=== PATIENT | male | born 1990 | race Caucasian/White ===

== ENCOUNTER 2017-03-15 09:43 | Inpatient (IN) | payer OTHER ==
[2017-03-15 10:08] VITALS: BMI 36.1
--- NOTE | 2017-03-15 11:30 | HP ---
COWS - Scale Resting Pulse: 0= [place] 80 or Below Sweatin= Chills/Flushing Restless Observation: 1= Difficult to Sit Still Pupil Size: 0= Normal to Room Light Bone or Joint Aches: 2= Severe Diffuse Aches Runny Nose/ Eye Tearin= Runny Nose/Eyes GI Upset > 30mins: 2= Nausea/Diarrhea Tremor Observation: 1= Tremor [place], Not Seen Yawning Observation: 1= 1-2x During Session Anxiety or Irritability: 1=Feels Anxious/Irritable Goose Flesh Skin: 0=Smooth Skin COWS Score: 11 CIWA Score - CIWA Score Nausea/Vomitin-Mild Nausea/No Vomiting Muscle Tremors: 3 Anxiety: 4-Mod. Anxious/Guarded Agitation: 1-Slight > Activity Paroxysmal Sweats: 1-Minimal Palms Moist Orientation: 1-Uncertain about Date Tacttile Disturbances: 1-Very Mild Itch/Numbness Auditory Disturbances: 1-Very Mild Visual Disturbances: 1-Very Mild Sensitivity Headache: 2-Mild CIWA-Ar Total Score: 16 Admission ROS BHS - HPI Chief Complaint: I want to get better, get off drugs Allergies/Adverse Reactions: Allergies Allergy/AdvReac Type Severity Reaction Status Date / Time fish derived Allergy Severe Hives Verified 03/15/17 11:48 No Known Drug Allergies Allergy Verified 03/15/17 11:28 fish Allergy Severe Hives Uncoded 03/15/17 10:59 History of Present Illness: 26yo gentleman here for detox from alprazolam, opiates, using some alcohol as well - history of black outs and seizure two years ago. Previously in detox and rehab at [facility] 2014 - then in detox again last year in [place]. Exam Limitations: Clinical Condition - Ebola screening Have you traveled outside of the country in the last 21 days: No Have you had contact with anyone from an Ebola affected area: No Have you been sick,other than usual withdrawal symptoms: No Do you have a fever: No - Review of Systems Constitutional: Loss of Appetite, Malaise, Changes in sleep EENT: reports: Blurred Vision, Nose Congestion Respiratory: reports: No Symptoms reported Cardiac: reports: No Symptoms Reported GI: reports: Nausea : reports: No Symptoms Reported Musculoskeletal: reports: Back Pain, Muscle Pain Integumentary: reports: No Symptoms Reported Neuro: reports: Headache Endocrine: reports: No Symptoms Reported Hematology: reports: No Symptoms Reported Psychiatric: reports: Judgement Intact, Mood/Affect Appropiate, Anxious Other Systems: Reviewed and Negative Patient History - Patient Medical History Hx Asthma: No Hx Chronic Obstructive Pulmonary Disease (COPD): No Hx Cardiac Disorders: No Hx Hypertension: No Hx Seizures: Yes (drug rel 2 yrs ago) Hx Diabetes: No Hx Gastrointestinal Disorders: No Hx Liver Disease: No Hx Genitourinary Disorders: No Hx Sexually Transmitted Disorders: No Hx Renal Disease (ESRD): No Hx Thyroid Disease: No Hx Human Immunodeficiency Virus (HIV): No Hx Hepatitis C: No Hx Depression: Yes (history of meds) Hx Suicide Attempt: No Hx Bipolar Disorder: No Hx Schizophrenia: Yes (hospitalized 2013 in [facility]) - Patient Surgical History Past Surgical History: No - PPD History Previous Implant?: Yes Documented Results: Negative w/o proof Implanted On Prior [facility] Admission?: Yes PPD to be Administered?: Yes - Reproductive History Patient is a Female of Child Bearing Age (11 -55 yrs old): No (male) - Smoking Cessation Smoking history: Current every day smoker Have you smoked in the past 12 months: Yes Aproximately how many cigarettes per day: 20 Hx Chewing Tobacco Use: No Initiated information on smoking cessation: Yes 'Breaking Loose' booklet given: 03/15/17 (give on floor) - Substance & Tx. History Hx Alcohol Use: Yes Hx Substance Use: Yes Substance Use Type: Alcohol, Cocaine, Heroin, Opiates, Tranquilizers Hx Substance Use Treatment: Yes (detox, rehab, methadone last year x 3 mo (100mg ),) - Substances Abused Heroin Route: Injection Frequency: Daily Amount used: 5 bags Age of first use: 25 Date of Last Use: 03/14/17 Alprazolam (Xanax) Route: Oral Frequency: 3-6 times per week Amount used: 4- 6mg daily Age of first use: 25 Date of Last Use: 03/13/17 Alcohol Route: Oral Frequency: 1-3 times last 30 days Amount used: vodka 2 pints Age of first use: 25 Date of Last Use: 03/12/17 Marijuana/Hashish Route: Smoking Frequency: 1-2 times per week Amount used: 1 joint Age of first use: 13 Date of Last Use: 03/14/17 Crack Route: Smoking Frequency: 1-2 times per week Amount used: $20 Age of first use: 24 Date of Last Use: 03/14/17 Family Disease History - Family Disease History Family Disease History: Other: Father (living, healthy), Mother (living, healthy ), Brother (one, healthy), Sister (one living, one MVA), Son (one age 3 , healthy) Admission Physical Exam [facility] - Vital Signs Vital Signs: Vital Signs - 24 hr 03/15/17 10:00 Temperature 98 F Pulse Rate 63 Respiratory 20 Rate Blood Pressure 122/69 - Physical General Appearance: Yes: Nourished, Appropriately Dressed, Moderate Distress, Tremorous, Anxious HEENTM: Yes: Hearing grossly Normal, Normocephalic, Normal Voice, Pharynx Normal Respiratory: Yes: Normal Breath Sounds, No Respiratory Distress Neck: Yes: No masses,lesions,Nodules, Supple Breast: Yes: Breast Exam Deferred Cardiology: Yes: Regular Rhythm, Regular Rate Abdominal: Yes: Soft Genitourinary: Yes: Frequency Back: Yes: Normal Inspection Musculoskeletal: Yes: full range of Motion, Gait Steady Extremities: Yes: Normal Inspection Neurological: Yes: Alert, Normal Mood/Affect, Normal Response Integumentary: Yes: Normal Color, Warm Lymphatic: Yes: Within Normal Limits - Diagnostic (1) Opioid dependence with withdrawal Current Visit: Yes Status: Chronic (2) Sedative, hypnotic or anxiolytic dependence with withdrawal, uncomplicated Current Visit: Yes Status: Chronic (3) ETOH abuse Current Visit: Yes Status: Chronic (4) Cocaine dependence Current Visit: Yes Status: Chronic Qualifiers: Substance use status: uncomplicated Qualified Code(s): F14.20 - Cocaine dependence, uncomplicated (5) History of seizure Current Visit: Yes Status: Chronic (6) Marijuana dependence Current Visit: Yes Status: Chronic (7) Nicotine dependence Current Visit: Yes Status: Chronic Qualifiers: Nicotine product type: cigarettes Substance use status: uncomplicated Qualified Code(s): F17.210 - Nicotine dependence, cigarettes, uncomplicated Cleared for Admission [facility] - Detox or Rehab [facility] Level of Care: Medically Managed Detox Regimen/Protocol: Methadone/Valium S Breath Alcohol Content Breath Alcohol Content: 0 Urine Drug Screen - Results Drug Screen Negative: No Urine Drug Screen Results: THC-Marijuana, PRAVEEN-Cocaine, OPI-Opiates
[2017-03-15] MEDS ORDERED: IBUPROFEN 400 MG TABLET (FP) PO PRN (11:41)
[2017-03-15] MEDS ORDERED: MAG HYDROX/AL HYDROX/SIMETH 30 ML UNIT-DOSE CUP PO PRN (11:41)
[2017-03-15] MEDS ORDERED: MENTHOL/PHENOL 1 EACH UD MM PRN (11:41)
[2017-03-15] MEDS ORDERED: P-EPHED 60MG/TRIPROLIDI 2.5MG TABLET PO PRN (11:41)
[2017-03-15] MEDS ORDERED: hydrOXYzine PAMOATE 50 MG CAPSULE (FP) PO PRN (11:41)
[2017-03-15] MEDS ORDERED: LOPERAMIDE HCL 2 MG CAPSULE PO PRN (11:41)
[2017-03-15] MEDS ORDERED: diphenhydrAMINE HCL 50 MG CAPSULE PO PRN (11:41)
[2017-03-15] MEDS ORDERED: MAGNESIUM CITRATE 300 ML BOTTLE PO PRN (11:41)
[2017-03-15] MEDS ORDERED: guaiFENesin/D-METHORPHAN HB 10 ML UNIT-DOSE CUPS PO PRN (11:41)
[2017-03-15] MEDS ORDERED: ACETAMINOPHEN 325 MG TABLET (FP) PO PRN (11:41)
[2017-03-15] MEDS ORDERED: MAGNESIUM HYDROX 2400MG/30ML ORAL SUSPENSION 30 ML CUP PO PRN (11:41)
[2017-03-15] MEDS ORDERED: diazePAM 5 MG TABLET PO ONE (12:15)
[2017-03-15] MEDS ORDERED: METHADONE HCL 10 MG TABLET (FOR DETOX USE ONLY) PO ONE ×2 (12:15→23:00)
[2017-03-15] MEDS: NICOTINE 21 MG/24 HOURS TOPICAL PATCH TD SCH (12:30)
[2017-03-15 13:03] LABS: URINE APPEARANCE CLEAR; URINE BILIRUBIN NEGATIVE (NEGATIVE); URINE BLOOD NEGATIVE (NEGATIVE); URINE COLOR YELLOW; URINE GLUCOSE (UA) NEGATIVE (NEGATIVE); URINE KETONE NEGATIVE (NEGATIVE); URINE LEUK ESTERASE NEGATIVE (NEGATIVE); URINE NITRITE NEGATIVE (NEGATIVE); URINE PROTEIN NEGATIVE (NEGATIVE)
--- NOTE | 2017-03-15 13:44 | CONSULT ---
[facility] Psychiatric Consult - Data Date of interview: 03/15/17 Admission source: [facility] Identifying data: First admission to [facility] for this 26 y/o [place] male seeking detox treatment on for heroin,cocaine,xanax, alcohol and marijuana dependence.Patient is single,a father of one (has a 3 year -old son),homeless,unemployed and supported on food stamps. Substance Abuse History: Fully discussed with the patient in this interview.Mr Mahan affirms that this report is an accurate description of his habits. Smoking Cessation. Smoking history: Current every day smoker. Have you smoked in the past 12 months: Yes. Aproximately how many cigarettes per day: 20. Hx Chewing Tobacco Use: No. Initiated information on smoking cessation: Yes. ' Breaking Loose' booklet given: 03/15/17 (give on floor). - Substance & Tx. History. Hx Alcohol Use: Yes. Hx Substance Use: Yes. Substance Use Type: Alcohol, Cocaine, Heroin, Opiates, Tranquilizers. Hx Substance Use Treatment: Yes (detox, rehab, methadone last year x 3 mo (100mg),). - Substances Abused. Heroin. Route: Injection. Frequency: Daily. Amount used: 5 bags. Age of first use: 25. Date of Last Use: 03/14/17. Alprazolam (Xanax). Route: Oral. Frequency: 3-6 times per week. Amount used: 4- 6mg daily. Age of first use: 25. Date of Last Use: 03/13/17. Alcohol. Route: Oral. Frequency: 1- 3 times last 30 days. Amount used: vodka 2 pints. Age of first use: 25. Date of Last Use: 03/12/17. Marijuana/Hashish. Route: Smoking. Frequency: 1-2 times per week. Amount used: 1 joint. Age of first use: 13. Date of Last Use : 03/14/17. Crack. Route: Smoking. Frequency: 1-2 times per week. Amount used: $20. Age of first use: 24. Date of Last Use: 03/14/17 Medical History: Noted history of withdrawal-related seizures. Psychiatric History: Patient is an articulate historian.He endorses a history of two psychiatric hospitalizations ([facility] during adolescence + [facility] in 2013).No report of regular psychiatric OPD care.Mr Negrito indicates that he was diagnosed with ADHD,PTSD and Schizophrenia.It appears that the diagnosis of schizophrenia is quite recent (established by a psychiatrist at [facility] a few months ago).Strattera has been proposed to the patient at another rehabilitation facility (not started for unclear reasons).Patient reports episodes of anhedonia,dysphoric/depressed mood, feelings of inadequacy and low self-esteem,brief/chronic auditory hallucinations (different voices of past victims injured in accidents witnessed by him during employment at the [employer]).Patient denies history of suicide attempts. Physical/Sexual Abuse/Trauma History: No reported history of sexual abuse.Stressors : estrangement from his parents/relatives,unemployment, homelessness,strained financial situation,lack of vocational skills,ambiguous relations with child's mother and recent of one sister in a motor vehicle accident.Patient admits to flasbacks and hyperarousal.No nightmares reported. Additional Comment: Urine Drug Screen Results: THC-Marijuana, PRAVEEN-Cocaine, OPI- Opiates.Noted. Mental Status Exam - Mental Status Exam Alert and Oriented to: Time, Place, Person Cognitive Function: Good Patient Appearance: Well Groomed (obese) Mood: Withdrawn, Anxious Affect: Mood Congruent, Constricted Patient Behavior: Fatigued, Talkative, Cooperative Speech Pattern: Clear, Appropriate Voice Loudness: Normal Thought Process: Goal Oriented Thought Disorder: Bizarre Hallucinations: Denies (during this interview;however voices are reported to be heard as a chronic occurrence.Not threatening or commandind and usually friendly according to patient) Suicidal Ideation: Denies Homicidal Ideation: Denies Insight/Judgement: Poor Sleep: Poorly, Difficulty falling asleep Appetite: Good Muscle strength/Tone: Normal Gait/Station: Normal Psychiatric Findings - Problem List ([place] 1, 2,3) (1) Opioid dependence with withdrawal Current Visit: Yes Status: Acute (2) Sedative, hypnotic or anxiolytic dependence with withdrawal, uncomplicated Current Visit: Yes Status: Acute (3) Marijuana dependence Current Visit: Yes Status: Acute (4) Cocaine dependence Current Visit: Yes Status: Acute Qualifiers: Substance use status: uncomplicated Qualified Code(s): F14.20 - Cocaine dependence, uncomplicated (5) Nicotine dependence Current Visit: Yes Status: Chronic Qualifiers: Nicotine product type: cigarettes Substance use status: uncomplicated Qualified Code(s): F17.210 - Nicotine dependence, cigarettes, uncomplicated (6) ETOH abuse Current Visit: Yes Status: Acute (7) Substance induced mood disorder Current Visit: Yes Status: Acute (8) Post traumatic stress disorder (PTSD) Current Visit: Yes Status: Suspected (9) Schizoaffective disorder Current Visit: Yes Status: Chronic (10) History of seizure Current Visit: Yes Status: Chronic (11) Insomnia Current Visit: Yes Status: Acute - Initial Treatment Plan Initial Treatment Plan: Psychoeducation.Detoxification.Patient agrees to be started on seroquel 50 mg po daily + 100 mg po hs with plan to titrate up to optimal dose (400-600 mg/day).To be augmented with an antidepressant + a mood stabilizer during treatment on the rehab unit (patient is interested in inpatient rehabilitation care).Ambien 10 mg po hs prn is ordered to address insomnia.Side effects/benefits of these drugs are discussed with the patient.Mr Mahan agrees to follow this careplan.Observation.
[2017-03-15] MEDS: diazePAM 5 MG TABLET PO SCH ×2 (14:29→22:17)
[2017-03-15] MEDS: diazePAM 5 MG TABLET PO PRN (17:45)
[2017-03-15] MEDS: ZOLPIDEM TARTRATE 5 MG TABLET PO PRN (22:17)
[2017-03-15] MEDS: QUEtiapine FUMARATE 100 MG TABLET (FP) PO SCH (22:17)
[2017-03-15] MEDS: THIAMINE HCL 100 MG TABLET (FP) PO SCH (22:18)
[2017-03-16] MEDS: diazePAM 5 MG TABLET PO SCH ×3 (05:41→22:17)
--- NOTE | 2017-03-16 09:51 | PN ---
[facility] CIWA - CIWA Score Nausea/Vomitin-Mild Nausea/No Vomiting Muscle Tremors: 3 Anxiety: 4-Mod. Anxious/Guarded Agitation: 3 Paroxysmal Sweats: 3 Orientation: 0-Oriented Tacttile Disturbances: 0-None Auditory Disturbances: 0-None Visual Disturbances: 0-None Headache: 0-None Present CIWA-Ar Total Score: 14 BHS COWS - Scale Resting Pulse: 0= [place] 80 or Below Sweatin=Flushed/Facial Moisture Restless Observation: 1= Difficult to Sit Still Pupil Size: 0= Normal to Room Light Bone or Joint Aches: 1= Mild Discomfort Runny Nose/ Eye Tearin= Nasal Congestion GI Upset > 30mins: 2= Nausea/Diarrhea Tremor Observation of Outstretched Hands: 2= Slight Tremor Visible Yawning Observation: 1= 1-2x During Session Anxiety or Irritability: 2=Irritable/Anxious Goose Flesh Skin: 0=Smooth Skin COWS Score: 12 S Progress Note (SOAP) Subjective: Anxiety,tremors,sweating,interrupted sleep,muscle aches,nausea. Objective: 03/16/17 09:50 Vital Signs - 8 hr 03/16/17 03/16/17 03:30 06:00 Temperature 97.3 F L Pulse Rate 55 L Respiratory 16 20 Rate Blood Pressure 102/66 Laboratory Last Values Urine Color Yellow 03/15/17 11:45 Urine Appearance Clear 03/15/17 11:45 Urine pH 7.0 (5.0-8.0) 03/15/17 11:45 Ur Specific [place] 1.020 (1.005-1.025) 03/15/17 11:45 Urine Protein Negative (NEGATIVE) 03/15/17 11:45 Urine Glucose (UA) Negative (NEGATIVE) 03/15/17 11:45 Urine Ketones Negative (NEGATIVE) 03/15/17 11:45 Urine Blood Negative (NEGATIVE) 03/15/17 11:45 Urine Nitrite Negative (NEGATIVE) 03/15/17 11:45 Urine Bilirubin Negative (NEGATIVE) 03/15/17 11:45 Urine Urobilinogen 2.0 mg/dL (0.2-1.0) 03/15/17 11:45 Ur Leukocyte Esterase Negative (NEGATIVE) 03/15/17 11:45 Assessment: 03/16/17 09:50 Withdrawal sx. Plan: Continue detox
[2017-03-16] MEDS ORDERED: METHADONE HCL 10 MG TABLET (FOR DETOX USE ONLY) PO SCH (10:00)
[2017-03-16] MEDS: PRENATAL VITAMINS W/ FOLIC ACID TABLET (FP) PO SCH (10:26)
[2017-03-16] MEDS: QUEtiapine FUMARATE 50 MG TABLET PO SCH (10:26)
[2017-03-16] MEDS: NICOTINE 21 MG/24 HOURS TOPICAL PATCH TD SCH (10:27)
[2017-03-16] MEDS: diazePAM 5 MG TABLET PO PRN ×2 (10:30→17:26)
[2017-03-16 10:31] LABS: ALBUMIN 3.5 g/dl (3.4-5.0); CALCIUM 8.6 mg/dL (8.5-10.1); GLUCOSE,RANDOM 95 mg/dL (74-106)
[2017-03-16 10:37] LABS: ALK PHOS 69 U/L (45-117); ANION GAP 7 (8-16); BILIRUBIN,TOTAL 0.4 mg/dL (0.2-1.0); CO2 26 mmol/L (21-32); CREATININE 0.9 mg/dL (0.7-1.3); SGOT/AST 9 U/L (15-37); SGPT/ALT 21 U/L (12-78); TOT PROT 6.5 g/dl (6.4-8.2)
[2017-03-16 10:58] LABS: MCH 28.2 pg (25.7-33.7); MCHC 33.5 g/dl (32.0-35.9); MEAN CELL VOLUME 84.3 fl (80-96); PLATELET COUNT 243 K/MM3 (134-434); RDW 13.5 % (11.9-15.9); WHITE BLOOD COUNT 6.4 K/mm3 (4.0-10.0)
--- NOTE | 2017-03-16 13:57 | EKG ---
Test Reason : Blood Pressure : / mmHG Vent. Rate : 062 BPM Atrial Rate : 062 BPM P-R Int : 138 ms QRS Dur : 094 ms QT Int : 394 ms P-R-T Axes : 042 068 043 degrees QTc Int : 399 ms NORMAL SINUS RHYTHM NORMAL ECG NO PREVIOUS ECGS AVAILABLE Confirmed by RADHA SILVA, ZOË ([id number]) on 03/16/2017 1:56:44 PM Referred By: Confirmed By:ZOË GARCIA MD
[2017-03-16] MEDS: ZOLPIDEM TARTRATE 5 MG TABLET PO PRN (22:17)
[2017-03-16] MEDS: QUEtiapine FUMARATE 100 MG TABLET (FP) PO SCH (22:17)
[2017-03-16] MEDS: THIAMINE HCL 100 MG TABLET (FP) PO SCH (22:17)
[2017-03-17] MEDS: diazePAM 5 MG TABLET PO PRN ×3 (05:52→18:06)
[2017-03-17] MEDS: PRENATAL VITAMINS W/ FOLIC ACID TABLET (FP) PO SCH (10:16)
[2017-03-17] MEDS: QUEtiapine FUMARATE 50 MG TABLET PO SCH (10:16)
[2017-03-17] MEDS: METHADONE HCL 5 MG TABLET (FOR DETOX USE ONLY) PO SCH (10:17)
[2017-03-17] MEDS: diazePAM 5 MG TABLET PO SCH ×2 (10:17→22:13)
[2017-03-17] MEDS: NICOTINE 21 MG/24 HOURS TOPICAL PATCH TD SCH (10:17)
--- NOTE | 2017-03-17 12:13 | PN ---
S CIWA - CIWA Score Nausea/Vomitin Muscle Tremors: 3 Anxiety: 3 Agitation: 3 Paroxysmal Sweats: 1-Minimal Palms Moist Orientation: 0-Oriented Tacttile Disturbances: 1-Very Mild Itch/Numbness Auditory Disturbances: 1-Very Mild Visual Disturbances: 1-Very Mild Sensitivity Headache: 2-Mild CIWA-Ar Total Score: 18 BHS COWS - Scale Resting Pulse: 0= MD 80 or Below Sweatin= Chills/Flushing Restless Observation: 3= Extraneous Movement Pupil Size: 1= Pupils >than Normal Bone or Joint Aches: 2= Severe Diffuse Aches Runny Nose/ Eye Tearin= Runny Nose/Eyes GI Upset > 30mins: 2= Nausea/Diarrhea Tremor Observation of Outstretched Hands: 2= Slight Tremor Visible Yawning Observation: 1= 1-2x During Session Anxiety or Irritability: 2=Irritable/Anxious Goose Flesh Skin: 0=Smooth Skin COWS Score: 16 S Progress Note (SOAP) Subjective: ALERT,IRRITABLE,ANXIOUS,INTERRUPTED SLEEP,TREMOR,PAIN IN THE BODY AND BACK Objective: 03/17/17 12:12 Vital Signs Temperature 97.7 F 03/17/17 10:06 Pulse Rate 68 03/17/17 10:06 Respiratory Rate 16 03/17/17 10:06 Blood Pressure 122/69 03/17/17 10:06 O2 Sat by Pulse Oximetry (%) Laboratory Last Values WBC 6.4 K/mm3 (4.0-10.0) 03/16/17 08:00 RBC 5.06 M/mm3 (4.00-5.60) 03/16/17 08:00 Hgb 14.3 GM/dL (11.7-16.9) 03/16/17 08:00 Hct 42.6 % (35.4-49) 03/16/17 08:00 MCV 84.3 fl (80-96) 03/16/17 08:00 MCH 28.2 pg (25.7-33.7) 03/16/17 08:00 MCHC 33.5 g/dl (32.0-35.9) 03/16/17 08:00 RDW 13.5 % (11.9-15.9) 03/16/17 08:00 Plt Count 243 K/MM3 (134-434) 03/16/17 08:00 MPV 8.0 fl (7.5-11.1) 03/16/17 08:00 Sodium 142 mmol/L (136-145) 03/16/17 08:00 Potassium 4.1 mmol/L (3.5-5.1) 03/16/17 08:00 Chloride 109 mmol/L (98-107) H 03/16/17 08:00 Carbon Dioxide 26 mmol/L (21-32) 03/16/17 08:00 Anion Gap 7 (8-16) L 03/16/17 08:00 BUN 11 mg/dL (7-18) 03/16/17 08:00 Creatinine 0.9 mg/dL (0.7-1.3) 03/16/17 08:00 Creat Clearance w eGFR > 60 (>60) 03/16/17 08:00 Random Glucose 95 mg/dL (74-106) 03/16/17 08:00 Calcium 8.6 mg/dL (8.5-10.1) 03/16/17 08:00 Total Bilirubin 0.4 mg/dL (0.2-1.0) 03/16/17 08:00 AST 9 U/L (15-37) L 03/16/17 08:00 ALT 21 U/L (12-78) 03/16/17 08:00 Alkaline Phosphatase 69 U/L (45-117) 03/16/17 08:00 Total Protein 6.5 g/dl (6.4-8.2) 03/16/17 08:00 Albumin 3.5 g/dl (3.4-5.0) 03/16/17 08:00 Urine Color Yellow 03/15/17 11:45 Urine Appearance Clear 03/15/17 11:45 Urine pH 7.0 (5.0-8.0) 03/15/17 11:45 Ur Specific [place] 1.020 (1.005-1.025) 03/15/17 11:45 Urine Protein Negative (NEGATIVE) 03/15/17 11:45 Urine Glucose (UA) Negative (NEGATIVE) 03/15/17 11:45 Urine Ketones Negative (NEGATIVE) 03/15/17 11:45 Urine Blood Negative (NEGATIVE) 03/15/17 11:45 Urine Nitrite Negative (NEGATIVE) 03/15/17 11:45 Urine Bilirubin Negative (NEGATIVE) 03/15/17 11:45 Urine Urobilinogen 2.0 mg/dL (0.2-1.0) 03/15/17 11:45 Ur Leukocyte Esterase Negative (NEGATIVE) 03/15/17 11:45 RPR Titer Nonreactive (NONREACTIVE) 03/16/17 08:00 Assessment: 03/17/17 12:12 WITHDRAWAL SYMPTOM Plan: CONTINUE DETOX,PSYCHIATRIC REEVALUATION ABOUT MEDICATIONS
[2017-03-17] MEDS: ZOLPIDEM TARTRATE 5 MG TABLET PO PRN (22:13)
[2017-03-17] MEDS: QUEtiapine FUMARATE 100 MG TABLET (FP) PO SCH (22:13)
[2017-03-17] MEDS: THIAMINE HCL 100 MG TABLET (FP) PO SCH (22:13)
--- NOTE | 2017-03-18 09:53 | PN ---
S Progress Note (SOAP) Subjective: ALERT,IRRITABLE,ANXIOUS,INTERRUPTED SLEEP,TREMOR,PAIN IN THE BODY AND BACK Objective: 03/18/17 09:51 Vital Signs Temperature 97.3 F L 03/18/17 06:20 Pulse Rate 69 03/18/17 06:20 Respiratory Rate 18 03/18/17 06:20 Blood Pressure 103/56 03/18/17 06:20 O2 Sat by Pulse Oximetry (%) Assessment: 03/18/17 09:52 WITHDRAWAL SYMPTOM Plan: CONTINUE DETOX,PSYCHIATRIC REEVALUATION
[2017-03-18] MEDS: PRENATAL VITAMINS W/ FOLIC ACID TABLET (FP) PO SCH (10:26)
[2017-03-18] MEDS: QUEtiapine FUMARATE 50 MG TABLET PO SCH (10:26)
[2017-03-18] MEDS: diazePAM 5 MG TABLET PO SCH ×2 (10:26→22:08)
[2017-03-18] MEDS: METHADONE HCL 5 MG TABLET (FOR DETOX USE ONLY) PO SCH (10:27)
[2017-03-18] MEDS: NICOTINE 21 MG/24 HOURS TOPICAL PATCH TD SCH (10:30)
[2017-03-18] MEDS: NICOTINE POLACRILEX 2 MG GUM BUC PRN ×2 (10:31→17:12)
--- NOTE | 2017-03-18 10:38 | PN ---
Psychiatric Progress Note Vital Signs: Vital Signs Period Temp Pulse Resp BP Sys/Gómez Pulse Ox Last 24 Hr 97.3 F-98.1 F 60-78 16-20 103-132/56-86 Date of Session: 03/18/17 Chief Complaint:: " I am feeling much better." HPI: Day 4 of detox treatment.Patient is re-evaluated for adjustment of medications. ROS: Patient is visible,alert / fully oriented,calm and sociable.Pleasant on approach.No somatic complaints offered.Comfortable. Current Medications: Active Medications Generic Name Dose Route Start Last Admin Trade Name Freq PRN Reason Stop Dose Admin Acetaminophen 650 mg 03/15/17 11:41 Tylenol - PO Q4H PRN FEVER OR PAIN Al Hydroxide/Mg Hydroxide 30 ml 03/15/17 11:41 Mylanta Oral Suspension - PO Q6H PRN DYSPEPSIA Diazepam 10 mg 03/15/17 11:41 03/17/17 18:06 Valium - PO 03/18/17 11:41 10 mg Q4H PRN Administration WITHDRAWAL(CONT SUBST) Diazepam 5 mg 03/17/17 10:00 03/17/17 22:13 Valium - PO 03/18/17 22:01 5 mg BID GREGG Administration Diazepam 5 mg 03/19/17 10:00 Valium - PO 03/19/17 10:01 DAILY GREGG Diphenhydramine HCl 50 mg 03/15/17 11:41 Benadryl - PO HSMR1 PRN INSOMNIA Eucalyptus/Menthol/Phenol/Sorbitol 1 each 03/15/17 11:41 Cepastat Lozenge - MM Q4H PRN SORE THROAT Guaifenesin 10 ml 03/15/17 11:41 Robitussin Dm - PO Q6H PRN COUGH Hydroxyzine Pamoate 50 mg 03/15/17 11:41 Vistaril - PO Q4H PRN AGITATION Ibuprofen 400 mg 03/15/17 11:41 Motrin - PO Q6H PRN SEVERE PAIN Loperamide HCl 4 mg 03/15/17 11:41 Imodium - PO Q6H PRN DIARRHEA Magnesium Citrate 300 ml 03/15/17 11:41 Citroma - PO Q48H PRN CONSTIPATION Magnesium Hydroxide 30 ml 03/15/17 11:41 Milk Of Magnesia - PO DAILY PRN CONSTIPATION Methadone HCl 10 mg 03/19/17 10:00 Dolophine - PO 03/19/17 10:01 DAILY GREGG Methadone HCl 5 mg 03/20/17 06:00 Dolophine - PO 03/20/17 06:01 DAILY@0600 GREGG Nicotine 21 mg 03/15/17 12:15 03/17/17 10:17 Nicoderm Patch - TD 21 mg DAILY GREGG Administration Nicotine Polacrilex 2 mg 03/18/17 09:03 Nicorette Gum - BUC Q2H PRN NICOTINE REPLACEMENT RX Multivit/Folic Acid/Iron 1 tab 03/16/17 10:00 03/17/17 10:16 Vitamins ([facility]) - PO 1 tab DAILY GREGG Administration Pseudoephedrine/Triprolidine 1 combo 03/15/17 11:41 Actifed - PO TID PRN NASAL CONGESTION Quetiapine Fumarate 100 mg 03/15/17 22:00 03/17/17 22:13 Seroquel - PO 100 mg HS GREGG Administration Quetiapine Fumarate 50 mg 03/16/17 10:00 03/17/17 10:16 Seroquel - PO 50 mg DAILY GREGG Administration Thiamine HCl 100 mg 03/15/17 22:00 03/17/17 22:13 Vitamin B1 - PO 100 mg HS GREGG Administration Zolpidem Tartrate 10 mg 03/15/17 17:19 03/17/17 22:13 Ambien - PO 10 mg HS PRN Administration INSOMNIA Medication(s) Change(s): Seroquel is raised to 200 mg po hs + 100 mg po daily.Patient is offered a choice among three mood stabilizers (depakote,lithium ,topamax).Mr Mahan declines.He appears more concerned about the discontinuation of diazepam." I cannot function without valium." Current Side Effect: No Lab tests ordered: No Lab tests reviewed: Yes Provider note:: Met with the patient at bedside.Mr Mahan reports feeling calmer,more controlled and energetic.He endorses remarkable improvement of sleep and appetite.No complaint of auditory hallucinations.No delusions elicited." This combination of seroquel and valium is working well.I sleep good and I no longer feel tense." Patient is already inquiring about the feasibility of having a script for valium at discharge (informed that no such script will be dispensed).Personal hygiene is adequate.Thought processes are relevant, logical and goal-directed.Patient insists on staying on seroquel (rejects proposal of augmentation with mood stabilizers).Psychostimulants are discussed in this session.Patient is made aware of the potential for occurrence of psychosis as an adverse effect and he advised to address ADHD (if diagnosed with certainty) in OPD care.Otherwise the patient is showing good progress.His inclination for benzodiazepines has become more evident throughout this hospital course.Patient is made aware of alternate medications for anxiety ( SSRI drugs discussed but patient expresses no interest).Mr Mahan is adherent to his regime of treatment.He is comfortabel with plan to transition to rehabiltation care at [facility] in [facility].MSE completed.Uneventful hospital course. Total face to face time:: 45 Mental Status Exam - Mental Status Exam Alert and Oriented to: Time, Place, Person Cognitive Function: Good Patient Appearance: Well Groomed Mood: Hopeful, Euthymic Affect: Appropriate, Normal Range Patient Behavior: Appropriate, Cooperative Speech Pattern: Clear Voice Loudness: Normal Thought Process: Intact, Goal Oriented Thought Disorder: Not Present Hallucinations: Denies Suicidal Ideation: Denies Homicidal Ideation: Denies Insight/Judgement: Fair Sleep: Well Appetite: Good Muscle strength/Tone: Normal Gait/Station: Normal Psychiatric Treatment Plan - Problem List (1) Opioid dependence with withdrawal Current Visit: Yes (2) Sedative, hypnotic or anxiolytic dependence with withdrawal, uncomplicated Current Visit: Yes (3) Marijuana dependence Current Visit: Yes (4) Cocaine dependence Current Visit: Yes Qualifiers: Substance use status: uncomplicated Qualified Code(s): F14.20 - Cocaine dependence, uncomplicated (5) Nicotine dependence Current Visit: Yes Qualifiers: Nicotine product type: cigarettes Substance use status: uncomplicated Qualified Code(s): F17.210 - Nicotine dependence, cigarettes, uncomplicated (6) ETOH abuse Current Visit: Yes (7) Substance induced mood disorder Current Visit: Yes (8) Post traumatic stress disorder (PTSD) Current Visit: Yes (9) Schizoaffective disorder Current Visit: Yes (10) History of seizure Current Visit: Yes (11) Insomnia Current Visit: Yes
[2017-03-18] MEDS: THIAMINE HCL 100 MG TABLET (FP) PO SCH (22:07)
[2017-03-18] MEDS: QUEtiapine FUMARATE 200 MG TABLET PO SCH (22:08)
[2017-03-18] MEDS: ZOLPIDEM TARTRATE 5 MG TABLET PO PRN (22:08)
--- NOTE | 2017-03-19 09:56 | PN ---
S Progress Note (SOAP) Subjective: ALERT,IRRITABLE,ANXIOUS,INTERRUPTED SLEEP Objective: 03/19/17 09:54 Vital Signs Temperature 97.4 F L 03/19/17 06:12 Pulse Rate 58 L 03/19/17 06:12 Respiratory Rate 16 03/19/17 06:12 Blood Pressure 97/50 03/19/17 06:12 O2 Sat by Pulse Oximetry (%) Assessment: 03/19/17 09:55 WITHDRAWAL SYMPTOM Plan: CONTINUE DETOX,DISCHARGE IN AM
[2017-03-19] MEDS ORDERED: METHADONE HCL 10 MG TABLET (FOR DETOX USE ONLY) PO SCH (10:00)
[2017-03-19] MEDS ORDERED: diazePAM 5 MG TABLET PO SCH (10:00)
[2017-03-19] MEDS: PRENATAL VITAMINS W/ FOLIC ACID TABLET (FP) PO SCH (10:23)
[2017-03-19] MEDS: NICOTINE 21 MG/24 HOURS TOPICAL PATCH TD SCH (10:23)
[2017-03-19] MEDS: QUEtiapine FUMARATE 100 MG TABLET (FP) PO SCH (10:23)
[2017-03-19] MEDS: ZOLPIDEM TARTRATE 5 MG TABLET PO PRN (22:26)
[2017-03-19] MEDS: THIAMINE HCL 100 MG TABLET (FP) PO SCH (22:26)
[2017-03-19] MEDS: QUEtiapine FUMARATE 200 MG TABLET PO SCH (22:27)
[2017-03-19] MEDS: NICOTINE POLACRILEX 2 MG GUM BUC PRN (22:28)
[2017-03-20] MEDS ORDERED: METHADONE HCL 5 MG TABLET (FOR DETOX USE ONLY) PO SCH (06:00)
--- NOTE | 2017-03-20 08:34 | DS ---
[facility] Detox Discharge Summary Admission Date: 03/15/17 Discharge Date: 03/20/17 - History Present History: Alcohol Dependence, Cannabis Dependence, Cocaine Dependence, Opioid Dependence, Sedative Dependence Additional Comments: FOLLOW UP WITH AFTER CARE PROGRAM ARRANGEMENT Pertinent Past History: NICOTINE DEPENDENCE SEIZURE HISTORY SCHIZOAFFECTIVE DISORDER PTSD - Physical Exam Results Vital Signs: Vital Signs Temperature 97.7 F 03/20/17 06:14 Pulse Rate 65 03/20/17 06:14 Respiratory Rate 16 03/20/17 06:14 Blood Pressure 101/53 03/20/17 06:14 O2 Sat by Pulse Oximetry (%) Pertinent Admission Physical Exam Findings: WITHDRAWAL FINDING - Treatment Hospital Course: Detox Protocol Followed, Detoxed Safely, Responded well, Discharged Condition Good, Rehab Referral Accepted Patient has Accepted a Rehab Referral to: [facility] - Medication Discharge Medications: Ambulatory Orders NK [No Known Home Medication] 03/15/17 - AMA Did Patient Leave Against Medical Advice: No
[2017-03-20 10:19] VITALS: BP 157/86; PULSE 104; TEMP 98.2
[2017-03-20] MEDS: PRENATAL VITAMINS W/ FOLIC ACID TABLET (FP) PO SCH (10:30)
[2017-03-20] MEDS: NICOTINE 21 MG/24 HOURS TOPICAL PATCH TD SCH (10:31)
[2017-03-20] MEDS: QUEtiapine FUMARATE 100 MG TABLET (FP) PO SCH (10:31)
== END 2017-03-20 11:04 | disposition home or self-care (01) | DRG 773 ==
LOC: YASAS 09:43 → UNDOADMIN 11:35 → Y6N 11:35 → UNDODISIN 03-20 11:04
PROVIDERS: ADMIT Internal Medicine; ATTEND Internal Medicine
PROC: HZ2ZZZZ Detoxification Services for Substance Abuse Treatment (ICD-10-PCS; principal; 2017-03-15)
DX: F11.23 Opioid dependence with withdrawal (principal); F13.230 Sedative, hypnotic or anxiolytic dependence with withdrawal, uncomplicated; F14.20 Cocaine dependence, uncomplicated; F12.20 Cannabis dependence, uncomplicated; F10.10 Alcohol abuse, uncomplicated; F17.210 Nicotine dependence, cigarettes, uncomplicated; F25.9 Schizoaffective disorder, unspecified; F43.10 Post-traumatic stress disorder, unspecified; F19.24 Other psychoactive substance dependence with psychoactive substance-induced mood disorder; G47.00 Insomnia, unspecified; Z86.69 Personal history of other diseases of the nervous system and sense organs; Z91.013 Allergy to seafood
CPT/HCPCS: 36415; 80053; 81003; 85027; 86593; 93005; 93010

== ENCOUNTER 2017-09-25 11:09 | Inpatient (IN) | payer OTHER ==
[2017-09-25 13:46] VITALS: BMI 33.0
--- NOTE | 2017-09-25 14:38 | HP ---
COWS - Scale Resting Pulse: 0= [place] 80 or Below Sweatin=Flushed/Facial Moisture Restless Observation: 1= Difficult to Sit Still Pupil Size: 0= Normal to Room Light Bone or Joint Aches: 2= Severe Diffuse Aches Runny Nose/ Eye Tearin= Runny Nose/Eyes GI Upset > 30mins: 0= None Tremor Observation: 2= Slight Tremor Visible Yawning Observation: 2= >3x During Session Anxiety or Irritability: 2=Irritable/Anxious Goose Flesh Skin: 3=Piloerection COWS Score: 16 Admission ROS S - HPI Chief Complaint: I am here to detox from the opioids and I no longer want to be on suboxone anymore. My last suboxone taken 3weeks ago. Allergies/Adverse Reactions: Allergies Allergy/AdvReac Type Severity Reaction Status Date / Time fish derived Allergy Severe Hives Verified 09/25/17 13:53 No Known Drug Allergies Allergy Verified 09/25/17 13:53 fish Allergy Severe Hives Uncoded 09/25/17 13:53 History of Present Illness: pt is a 27yr old male with a history of heroin dependence seeking detox for treatment. Exam Limitations: No Limitations - Ebola screening Have you traveled outside of the country in the last 21 days: No Have you had contact with anyone from an Ebola affected area: No Have you been sick,other than usual withdrawal symptoms: No Do you have a fever: No - Review of Systems Constitutional: Chills, Diaphoresis, Loss of Appetite, Night Sweats, Unintentional Wgt. Loss EENT: reports: Nose Congestion Respiratory: reports: No Symptoms reported Cardiac: reports: No Symptoms Reported GI: reports: Nausea, Poor Appetite, Poor Fluid Intake : reports: No Symptoms Reported Musculoskeletal: reports: No Symptoms Reported Integumentary: reports: Flushing, Sweating Neuro: reports: Seizure (last seizure 2 yrs related to benzo), Tingling, Tremors Endocrine: reports: Excessive Sweating, Flushing, Intolerance to Cold, Intolerance to Heat Hematology: reports: No Symptoms Reported Psychiatric: reports: Judgement Intact, Mood/Affect Appropiate, Orientated x3, Agitated, Anxious Other Systems: Reviewed and Negative Patient History - Patient Medical History Hx Anemia: No Hx Asthma: No Hx Chronic Obstructive Pulmonary Disease (COPD): No Hx Cancer: No Hx Cardiac Disorders: No Hx Congestive Heart Failure: No Hx Hypertension: No Hx Hypercholesterolemia: No Hx Pacemaker: No HX Cerebrovascular Accident: No Hx Seizures: Yes (drug related once in 2016) Hx Dementia: No Hx Diabetes: No Hx Gastrointestinal Disorders: No Hx Liver Disease: No Hx Genitourinary Disorders: No Hx Sexually Transmitted Disorders: No Hx Renal Disease (ESRD): No Hx Thyroid Disease: No Hx Human Immunodeficiency Virus (HIV): No (negative) Hx Hepatitis C: No (negative) Hx Depression: No Hx Suicide Attempt: No (denies) Hx Bipolar Disorder: No Hx Schizophrenia: No Other Medical History: ptsd, adhd, - Patient Surgical History Past Surgical History: No Hx Neurologic Surgery: No Hx Cataract Extraction: No Hx Cardiac Surgery: No Hx Lung Surgery: No Hx Breast Surgery: No Hx Breast Biopsy: No Hx Abdominal Surgery: No Hx Appendectomy: No Hx Cholecystectomy: No Hx Genitourinary Surgery: No Hx Section: No Hx Orthopedic Surgery: No Anesthesia Reaction: No - PPD History Previous Implant?: Yes Documented Results: Negative w/proof Implanted On Prior [facility] Admission?: Yes Date: 03/17/17 Results: 0 mm PPD to be Administered?: No - Reproductive History Patient is a Female of Child Bearing Age (11 -55 yrs old): No - Smoking Cessation Smoking history: Current every day smoker Have you smoked in the past 12 months: Yes Aproximately how many cigarettes per day: 20 Hx Chewing Tobacco Use: No Initiated information on smoking cessation: Yes 'Breaking Loose' booklet given: 09/25/17 - Substance & Tx. History Hx Alcohol Use: No Hx Substance Use: Yes Substance Use Type: Cocaine, Heroin, Marijuana, Tranquilizers Hx Substance Use Treatment: Yes (last detox 2017 [facility]) - Substances Abused Heroin Route: Injection Frequency: Daily Amount used: 10 bags Age of first use: 23 Date of Last Use: 09/25/17 Crack Route: Smoking Frequency: 1-2 times per week Amount used: $10 Age of first use: 26 Date of Last Use: 09/24/17 Xanax Route: Oral Frequency: 3-6 times per week Amount used: 2-4 mg. Age of first use: 26 Date of Last Use: 09/22/17 Marijuana Route: Smoking Frequency: 3-6 times per week Amount used: $5 Age of first use: 16 Date of Last Use: 09/25/17 Family Disease History - Family Disease History Family Disease History: Other: Father (living, healthy), Mother (living, healthy ), Brother (one, healthy), Sister (one living, one MVA), Son (one age 3 , healthy) Admission Physical Exam [facility] - Vital Signs Vital Signs: Vital Signs - 24 hr 09/25/17 13:42 Temperature 99.1 F Pulse Rate 70 Respiratory 20 Rate Blood Pressure 117/71 - Physical General Appearance: Yes: Appropriately Dressed, Moderate Distress, Tremorous, Irritable, Sweating, Anxious HEENTM: Yes: Hearing grossly Normal, Normal Voice, Nasal Congestion, Rhinorrhea Respiratory: Yes: Lungs Clear, Normal Breath Sounds, No Respiratory Distress Neck: Yes: No masses,lesions,Nodules Breast: Yes: Within Normal Limits, Breasts Symetrical, No Discharge Cardiology: Yes: Within Normal Limits, Regular Rhythm, Regular Rate Abdominal: Yes: Normal Bowel Sounds, Non Tender, Soft Genitourinary: Yes: Within Normal Limits Back: Yes: Normal Inspection Musculoskeletal: Yes: full range of Motion, Back pain Extremities: Yes: Normal Capillary Refill, Normal Inspection, Non-Tender, Tremors Neurological: Yes: Fully Oriented, Alert, Normal Response Integumentary: Yes: Normal Color, Diaphoresis, Track Chen Lymphatic: Yes: Within Normal Limits - Diagnostic (1) Cocaine dependence Current Visit: Yes Status: Acute Qualifiers: Substance use status: uncomplicated Qualified Code(s): F14.20 - Cocaine dependence, uncomplicated (2) Insomnia Current Visit: No Status: Acute (3) Marijuana dependence Current Visit: Yes Status: Chronic (4) Opioid dependence with withdrawal Current Visit: Yes Status: Chronic (5) Sedative, hypnotic or anxiolytic dependence with withdrawal, uncomplicated Current Visit: Yes Status: Chronic (6) Substance induced mood disorder Current Visit: No Status: Acute (7) History of seizure Current Visit: No Status: Suspected (8) Nicotine dependence Current Visit: Yes Status: Chronic Qualifiers: Nicotine product type: cigarettes Substance use status: uncomplicated Qualified Code(s): F17.210 - Nicotine dependence, cigarettes, uncomplicated (9) Schizoaffective disorder Current Visit: No Status: Chronic (10) Post traumatic stress disorder (PTSD) Current Visit: No Status: Suspected Cleared for Admission [facility] - Detox or Rehab [facility] Level of Care: Medically Managed Detox Regimen/Protocol: Methadone S Breath Alcohol Content Breath Alcohol Content: 0 Urine Drug Screen - Results Drug Screen Negative: No Urine Drug Screen Results: THC-Marijuana, PRAVEEN-Cocaine, OPI-Opiates, AMP- Amphetamines, OXY-Oxycodone
[2017-09-25] MEDS ORDERED: hydrOXYzine PAMOATE 50 MG CAPSULE (FP) PO PRN (14:44)
[2017-09-25] MEDS ORDERED: MENTHOL/PHENOL 1 EACH UD MM PRN (14:44)
[2017-09-25] MEDS ORDERED: ACETAMINOPHEN 325 MG TABLET (FP) PO PRN (14:44)
[2017-09-25] MEDS ORDERED: MAG HYDROX/AL HYDROX/SIMETH 30 ML UNIT-DOSE CUP PO PRN (14:44)
[2017-09-25] MEDS ORDERED: guaiFENesin/D-METHORPHAN HB 10 ML UNIT-DOSE CUPS PO PRN (14:44)
[2017-09-25] MEDS ORDERED: MAGNESIUM CITRATE 300 ML BOTTLE PO PRN (14:44)
[2017-09-25] MEDS ORDERED: MAGNESIUM HYDROX 2400MG/30ML ORAL SUSPENSION 30 ML CUP PO PRN (14:44)
[2017-09-25] MEDS ORDERED: P-EPHED 60MG/TRIPROLIDI 2.5MG TABLET PO PRN (14:44)
[2017-09-25] MEDS ORDERED: LOPERAMIDE HCL 2 MG CAPSULE PO PRN (14:44)
[2017-09-25] MEDS ORDERED: METHADONE HCL 10 MG TABLET (FOR DETOX USE ONLY) PO ONE ×2 (14:44→23:00)
[2017-09-25] MEDS ORDERED: IBUPROFEN 400 MG TABLET (FP) PO PRN (14:44)
[2017-09-25] MEDS: diazePAM 5 MG TABLET PO PRN ×2 (15:37→20:30)
[2017-09-25 18:10] LABS: URINE APPEARANCE CLEAR; URINE BILIRUBIN NEGATIVE (NEGATIVE); URINE BLOOD NEGATIVE (NEGATIVE); URINE COLOR DKYELLOW; URINE GLUCOSE (UA) NEGATIVE (NEGATIVE); URINE KETONE NEGATIVE (NEGATIVE); URINE LEUK ESTERASE NEGATIVE (NEGATIVE); URINE NITRITE NEGATIVE (NEGATIVE); URINE PROTEIN NEGATIVE (NEGATIVE); URINE UROBILINOGEN 4.0 E.U/dl mg/dL (0.2-1.0)
[2017-09-25] MEDS: THIAMINE HCL 100 MG TABLET (FP) PO SCH (22:22)
[2017-09-26] MEDS: diazePAM 5 MG TABLET PO PRN ×5 (05:25→22:19)
[2017-09-26] MEDS: NICOTINE POLACRILEX 4 MG GUM BUC PRN ×3 (09:37→18:12)
[2017-09-26] MEDS: NICOTINE 21 MG/24 HOURS TOPICAL PATCH TD SCH (09:38)
[2017-09-26] MEDS: PRENATAL VITAMINS W/ FOLIC ACID TABLET (FP) PO SCH (09:38)
[2017-09-26] MEDS ORDERED: METHADONE HCL 10 MG TABLET (FOR DETOX USE ONLY) PO ONE (10:00)
[2017-09-26 10:24] LABS: HEMATOCRIT 43.3 % (35.4-49); HEMOGLOBIN 14.1 GM/dL (11.7-16.9); MCH 27.5 pg (25.7-33.7); MCHC 32.5 g/dl (32.0-35.9); MEAN CELL VOLUME 84.7 fl (80-96); MEAN PLT VOLUME 9.3 fl (7.5-11.1); PLATELET COUNT 266 K/MM3 (134-434); RBC 5.12 M/mm3 (4.00-5.60); RDW 14.1 % (11.9-15.9); WHITE BLOOD COUNT 7.5 K/mm3 (4.0-10.0)
[2017-09-26 10:31] LABS: BLOOD UREA NITROGEN 10 mg/dL (7-18); CHLORIDE 103 mmol/L (98-107); POTASSIUM 3.9 mmol/L (3.5-5.1); SODIUM 142 mmol/L (136-145)
[2017-09-26 11:01] LABS: ALBUMIN 4.1 g/dl (3.4-5.0); ALK PHOS 85 U/L (45-117); ANION GAP 10 (8-16); BILIRUBIN,TOTAL 0.5 mg/dL (0.2-1.0); CALCIUM 9.3 mg/dL (8.5-10.1); CO2 29 mmol/L (21-32); CREATININE 0.8 mg/dL (0.7-1.3); GLUCOSE,RANDOM 87 mg/dL (74-106); SGOT/AST 14 U/L (15-37); SGPT/ALT 26 U/L (12-78); TOT PROT 7.4 g/dl (6.4-8.2)
--- NOTE | 2017-09-26 13:21 | PN ---
S COWS - Scale Resting Pulse: 0= [place] 80 or Below Sweatin= Chills/Flushing Restless Observation: 1= Difficult to Sit Still Pupil Size: 0= Normal to Room Light Bone or Joint Aches: 2= Severe Diffuse Aches Runny Nose/ Eye Tearin= None GI Upset > 30mins: 2= Nausea/Diarrhea Tremor Observation of Outstretched Hands: 2= Slight Tremor Visible Yawning Observation: 1= 1-2x During Session Anxiety or Irritability: 2=Irritable/Anxious Goose Flesh Skin: 3=Piloerection COWS Score: 14 S Progress Note (SOAP) Subjective: Diarrhea, Body Aches, Sweating, Tremors, Anxious. Objective: PT. A & O X 3, OBSERVED AMBULATING ON UNIT. NO ACUTE DISTRESS. 09/26/17 13:20 Vital Signs Temperature 98.6 F 09/26/17 09:33 Pulse Rate 68 09/26/17 09:33 Respiratory Rate 20 09/26/17 09:33 Blood Pressure 123/71 09/26/17 09:33 O2 Sat by Pulse Oximetry (%) Laboratory Tests 09/25/17 09/26/17 09/26/17 16:00 06:00 06:00 WBC 7.5 RBC 5.12 Hgb 14.1 Hct 43.3 MCV 84.7 MCH 27.5 MCHC 32.5 RDW 14.1 Plt Count 266 MPV 9.3 D Sodium 142 Potassium 3.9 Chloride 103 Carbon Dioxide 29 Anion Gap 10 BUN 10 Creatinine 0.8 Creat Clearance w eGFR > 60 Random Glucose 87 Calcium 9.3 Total Bilirubin 0.5 D AST 14 L D ALT 26 D Alkaline Phosphatase 85 D Total Protein 7.4 Albumin 4.1 Urine Color Dkyellow Urine Appearance Clear Urine pH 6.0 Ur Specific [place] 1.028 Urine Protein Negative Urine Glucose (UA) Negative Urine Ketones Negative Urine Blood Negative Urine Nitrite Negative Urine Bilirubin Negative Urine Urobilinogen 4.0 e.u/dl Ur Leukocyte Esterase Negative RPR Titer 09/26/17 06:00 WBC RBC Hgb Hct MCV MCH MCHC RDW Plt Count MPV Sodium Potassium Chloride Carbon Dioxide Anion Gap BUN Creatinine Creat Clearance w eGFR Random Glucose Calcium Total Bilirubin AST ALT Alkaline Phosphatase Total Protein Albumin Urine Color Urine Appearance Urine pH Ur Specific [place] Urine Protein Urine Glucose (UA) Urine Ketones Urine Blood Urine Nitrite Urine Bilirubin Urine Urobilinogen Ur Leukocyte Esterase RPR Titer Nonreactive LABS NOTED. HIV AB RESULT PENDING. 09/26/17 13:21 Assessment: 09/26/17 13:20 WITHDRAWAL SYMPTOMS. Plan: CONTINUE DETOX.
--- NOTE | 2017-09-26 13:33 | CONSULT ---
[facility] Psychiatric Consult - Data Date of interview: 09/26/17 Admission source: [facility] Identifying data: Readmission to [facility] for this 27 y/o [place] male seeking detox treatment on for heroin,cocaine,xanax,alcohol and marijuana dependence.Patient is single,a father of one (has a 3 year-old son), homeless,unemployed and supported on Public Assistance. Substance Abuse History: Confirmed by patient in this interview.See current [facility] report for details.Smoking history: Current every day smoker. Have you smoked in the past 12 months: Yes. Aproximately how many cigarettes per day: 20. Hx Chewing Tobacco Use: No. Initiated information on smoking cessation: Yes. ' Breaking Loose' booklet given: 09/25/17. - Substance & Tx. History. Hx Alcohol Use: No. Hx Substance Use: Yes. Substance Use Type: Cocaine, Heroin, Marijuana, Tranquilizers. Hx Substance Use Treatment: Yes (last detox 2017 [facility]). - Substances Abused. Heroin. Route: Injection. Frequency: Daily. Amount used: 10 bags. Age of first use: 23. Date of Last Use: . Crack. Route: Smoking. Frequency: 1-2 times per week. Amount used: $ 10. Age of first use: 26. Date of Last Use: 09/24/17. Xanax. Route: Oral. Frequency: 3-6 times per week. Amount used: 2-4 mg. Age of first use: 26. Date of Last Use: 09/22/17. Marijuana. Route: Smoking. Frequency: 3- 6 times per week. Amount used: $5. Age of first use: 16. Date of Last Use: Medical History: History of withdrawal-related seizures. Psychiatric History: History of two psychiatric hospitalizations ([facility] during adolescence + [facility] in 2013).Mr Mahan indicates that he was diagnosed with ADHD,PTSD and Schizophrenia.It appears that the diagnosis of schizophrenia is quite recent (established by a psychiatrist at [facility] a few months ago).Patient is currently followed at the [facility] ( [facility]) clinic in [facility].Prescribed seroquel 200 mg/ hs + adderall 20 mg/day.No reported history of suicide attempts. Physical/Sexual Abuse/Trauma History: No reported history of sexual abuse. Additional Comment: Urine Drug Screen Results: THC-Marijuana, PRAVEEN-Cocaine, OPI- Opiates, AMP-Amphetamines, OXY-Oxycodone.Noted. Mental Status Exam - Mental Status Exam Alert and Oriented to: Time, Place, Person Cognitive Function: Good Patient Appearance: Well Groomed (overweight) Mood: Nervous, Withdrawn, Anxious Affect: Mood Congruent Patient Behavior: Appropriate, Cooperative Speech Pattern: Clear, Appropriate Voice Loudness: Normal Thought Process: Intact, Goal Oriented Thought Disorder: Not Present Hallucinations: Denies Suicidal Ideation: Denies Homicidal Ideation: Denies Insight/Judgement: Poor Sleep: Poorly, Difficulty falling asleep Appetite: Good Muscle strength/Tone: Normal Gait/Station: Normal Psychiatric Findings - Problem List ([place] 1, 2,3) (1) Opioid dependence with withdrawal Current Visit: Yes Status: Acute (2) Sedative, hypnotic or anxiolytic dependence with withdrawal, uncomplicated Current Visit: Yes Status: Acute (3) Cocaine dependence Current Visit: Yes Status: Acute Qualifiers: Substance use status: uncomplicated Qualified Code(s): F14.20 - Cocaine dependence, uncomplicated (4) Marijuana dependence Current Visit: Yes Status: Acute (5) Nicotine dependence Current Visit: Yes Status: Acute Qualifiers: Nicotine product type: cigarettes Substance use status: uncomplicated Qualified Code(s): F17.210 - Nicotine dependence, cigarettes, uncomplicated (6) Substance induced mood disorder Current Visit: Yes Status: Acute (7) Post traumatic stress disorder (PTSD) Current Visit: No Status: Suspected Comment: As per self- report.Asymptomatic in this interview. (8) ADHD (attention deficit hyperactivity disorder) Current Visit: Yes Status: Acute Comment: As per self-report. (9) Insomnia Current Visit: Yes Status: Acute - Initial Treatment Plan Initial Treatment Plan: Psychoeducation.Sleep hygiene.Detoxification in progress.Medications : seroquel 200 mg po hs + ambien 10 mg po hs.Side effects/ benefits discussed with the patient.Mr Mahan is in agreement with this careplan.Observation.
[2017-09-26] MEDS: ZOLPIDEM TARTRATE 5 MG TABLET PO PRN (22:19)
[2017-09-26] MEDS: QUEtiapine FUMARATE 200 MG TABLET PO SCH (22:19)
[2017-09-26] MEDS: THIAMINE HCL 100 MG TABLET (FP) PO SCH (22:19)
[2017-09-27] MEDS: diazePAM 5 MG TABLET PO PRN ×3 (08:45→22:24)
[2017-09-27] MEDS ORDERED: METHADONE HCL 5 MG TABLET (FOR DETOX USE ONLY) PO ONE (10:00)
[2017-09-27] MEDS: PRENATAL VITAMINS W/ FOLIC ACID TABLET (FP) PO SCH (10:24)
[2017-09-27] MEDS: NICOTINE 21 MG/24 HOURS TOPICAL PATCH TD SCH (10:25)
--- NOTE | 2017-09-27 15:41 | PN ---
S COWS - Scale Resting Pulse: 0= [place] 80 or Below Sweatin= Chills/Flushing Restless Observation: 1= Difficult to Sit Still Pupil Size: 0= Normal to Room Light Bone or Joint Aches: 2= Severe Diffuse Aches Runny Nose/ Eye Tearin= Nasal Congestion GI Upset > 30mins: 0= None Tremor Observation of Outstretched Hands: 0= None Yawning Observation: 2= >3x During Session Anxiety or Irritability: 2=Irritable/Anxious Goose Flesh Skin: 3=Piloerection COWS Score: 12 [facility] Progress Note (SOAP) Subjective: Body Aches, Interrupted Sleep, Fatigue. Objective: PT. A & O X 3, OBSERVED AMBULATING ON UNIT. NO ACUTE DISTRESS. 09/27/17 15:39 Vital Signs Temperature 97.1 F L 09/27/17 13:03 Pulse Rate 63 09/27/17 13:03 Respiratory Rate 18 09/27/17 13:03 Blood Pressure 114/73 09/27/17 13:03 O2 Sat by Pulse Oximetry (%) Laboratory Tests 09/25/17 09/26/17 09/26/17 16:00 06:00 06:00 WBC 7.5 RBC 5.12 Hgb 14.1 Hct 43.3 MCV 84.7 MCH 27.5 MCHC 32.5 RDW 14.1 Plt Count 266 MPV 9.3 D Sodium 142 Potassium 3.9 Chloride 103 Carbon Dioxide 29 Anion Gap 10 BUN 10 Creatinine 0.8 Creat Clearance w eGFR > 60 Random Glucose 87 Calcium 9.3 Total Bilirubin 0.5 D AST 14 L D ALT 26 D Alkaline Phosphatase 85 D Total Protein 7.4 Albumin 4.1 Urine Color Dkyellow Urine Appearance Clear Urine pH 6.0 Ur Specific [place] 1.028 Urine Protein Negative Urine Glucose (UA) Negative Urine Ketones Negative Urine Blood Negative Urine Nitrite Negative Urine Bilirubin Negative Urine Urobilinogen 4.0 e.u/dl Ur Leukocyte Esterase Negative RPR Titer HIV 1&2 Antibody Screen HIV P24 Antigen 09/26/17 09/26/17 06:00 09:00 WBC RBC Hgb Hct MCV MCH MCHC RDW Plt Count MPV Sodium Potassium Chloride Carbon Dioxide Anion Gap BUN Creatinine Creat Clearance w eGFR Random Glucose Calcium Total Bilirubin AST ALT Alkaline Phosphatase Total Protein Albumin Urine Color Urine Appearance Urine pH Ur Specific [place] Urine Protein Urine Glucose (UA) Urine Ketones Urine Blood Urine Nitrite Urine Bilirubin Urine Urobilinogen Ur Leukocyte Esterase RPR Titer Nonreactive HIV 1&2 Antibody Screen Negative HIV P24 Antigen Negative LABS NOTED. Assessment: 09/27/17 15:39 WITHDRAWAL SYMPTOMS. Plan: CONTINUE DETOX.
[2017-09-27] MEDS: NICOTINE POLACRILEX 4 MG GUM BUC PRN ×2 (17:45→22:25)
[2017-09-27] MEDS: ZOLPIDEM TARTRATE 5 MG TABLET PO PRN (22:24)
[2017-09-27] MEDS: QUEtiapine FUMARATE 200 MG TABLET PO SCH (22:24)
[2017-09-27] MEDS: THIAMINE HCL 100 MG TABLET (FP) PO SCH (22:24)
[2017-09-28] MEDS: diazePAM 5 MG TABLET PO PRN (08:45)
[2017-09-28] MEDS ORDERED: METHADONE HCL 5 MG TABLET (FOR DETOX USE ONLY) PO ONE (10:00)
[2017-09-28] MEDS: NICOTINE 21 MG/24 HOURS TOPICAL PATCH TD SCH (10:02)
[2017-09-28] MEDS: PRENATAL VITAMINS W/ FOLIC ACID TABLET (FP) PO SCH (10:02)
--- NOTE | 2017-09-28 16:11 | PN ---
[facility] Progress Note (SOAP) Subjective: shakes abd cramp Objective: 09/28/17 16:10 A & O x 3 calm ambulating steadily on unit Vital Signs Temperature 98.1 F 09/28/17 13:33 Pulse Rate 82 09/28/17 13:33 Respiratory Rate 18 09/28/17 13:33 Blood Pressure 114/74 09/28/17 13:33 O2 Sat by Pulse Oximetry (%) Assessment: 09/28/17 16:10 withdrawal sx Plan: continue detox continue hydration d/c tomorrow
[2017-09-28] MEDS: NICOTINE POLACRILEX 4 MG GUM BUC PRN (17:58)
[2017-09-28] MEDS: THIAMINE HCL 100 MG TABLET (FP) PO SCH (22:15)
[2017-09-28] MEDS: QUEtiapine FUMARATE 200 MG TABLET PO SCH (22:15)
[2017-09-28] MEDS: ZOLPIDEM TARTRATE 5 MG TABLET PO PRN (22:15)
[2017-09-29] MEDS ORDERED: METHADONE HCL 5 MG TABLET (FOR DETOX USE ONLY) PO ONE (06:00)
[2017-09-29 06:02] VITALS: BP 94/63; PULSE 65; TEMP 97
[2017-09-29] MEDS ORDERED: METHADONE HCL 10 MG TABLET (FOR DETOX USE ONLY) PO ONE (10:00)
--- NOTE | 2017-09-29 12:06 | DS ---
[facility] Detox Discharge Summary Admission Date: 09/25/17 Discharge Date: 09/29/17 - History Pertinent Past History: ADHD - Physical Exam Results Vital Signs: Vital Signs Temperature 97 F L 09/29/17 06:02 Pulse Rate 65 09/29/17 06:02 Respiratory Rate 16 09/29/17 06:02 Blood Pressure 94/63 09/29/17 06:02 O2 Sat by Pulse Oximetry (%) Pertinent Admission Physical Exam Findings: withdrawal sx - Treatment Hospital Course: Detox Protocol Followed, Detoxed Safely, Responded well, Discharged Condition Good - Medication Discharge Medications: Ambulatory Orders Dextroamphetamine/Amphetamine [Adderall Xr 20 mg Capsule] 20 mg PO DAILY Quetiapine Fumarate [Seroquel -] 200 mg PO HS 09/25/17 - Diagnosis (1) Opioid dependence with withdrawal Status: Acute (2) Sedative, hypnotic or anxiolytic dependence with withdrawal, uncomplicated Status: Acute (3) Cocaine dependence Status: Acute Qualifiers: Substance use status: uncomplicated Qualified Code(s): F14.20 - Cocaine dependence, uncomplicated (4) Marijuana dependence Status: Acute (5) Insomnia Status: Acute (6) Nicotine dependence Status: Acute Qualifiers: Nicotine product type: cigarettes Substance use status: uncomplicated Qualified Code(s): F17.210 - Nicotine dependence, cigarettes, uncomplicated (7) Substance induced mood disorder Status: Acute (8) History of seizure Status: Suspected - AMA Did Patient Leave Against Medical Advice: No
[2017-09-30] MEDS ORDERED: METHADONE HCL 5 MG TABLET (FOR DETOX USE ONLY) PO ONE (06:00)
--- NOTE | 2017-09-30 13:39 | EKG ---
Test Reason : Blood Pressure : / mmHG Vent. Rate : 060 BPM Atrial Rate : 060 BPM P-R Int : 134 ms QRS Dur : 098 ms QT Int : 406 ms P-R-T Axes : 024 071 050 degrees QTc Int : 406 ms NORMAL SINUS RHYTHM NORMAL ECG WHEN COMPARED WITH ECG OF 15-MAR-2017 11:38, NO SIGNIFICANT CHANGE WAS FOUND Confirmed by MD Rouse Daniel ([id number]) on 09/30/2017 1:38:43 PM Referred By: Confirmed By:Dalton Rouse MD
== END 2017-09-29 09:11 | disposition home or self-care (01) | DRG 773 ==
LOC: YASAS 11:09 → Y3N 14:28
PROVIDERS: ADMIT Internal Medicine; ATTEND Internal Medicine
PROC: HZ2ZZZZ Detoxification Services for Substance Abuse Treatment (ICD-10-PCS; principal; 2017-09-25)
DX: F11.23 Opioid dependence with withdrawal (principal); F13.230 Sedative, hypnotic or anxiolytic dependence with withdrawal, uncomplicated; F10.230 Alcohol dependence with withdrawal, uncomplicated; F14.20 Cocaine dependence, uncomplicated; F12.20 Cannabis dependence, uncomplicated; F17.210 Nicotine dependence, cigarettes, uncomplicated; F25.9 Schizoaffective disorder, unspecified; F90.9 Attention-deficit hyperactivity disorder, unspecified type; F43.10 Post-traumatic stress disorder, unspecified; G47.00 Insomnia, unspecified; Z86.69 Personal history of other diseases of the nervous system and sense organs
CPT/HCPCS: 36415; 80053; 81003; 85027; 86593; 87389; 93005; 93010

== ENCOUNTER 2019-06-25 22:13 | Inpatient (IN) | payer OTHER ==
[2019-06-25 23:52] VITALS: BMI 27.3
--- NOTE | 2019-06-26 01:36 | HP ---
COWS - Scale Resting Pulse: 1= [place] 81-100 Sweatin=Flushed/Facial Moisture Restless Observation: 5= Unable to Sit Still Pupil Size: 1= Pupils >than Normal Bone or Joint Aches: 4=Acute Joint/Muscle Pain Runny Nose/ Eye Tearin= Runny Nose/Eyes GI Upset > 30mins: 1= Stomach Cramp Tremor Observation: 0= None Yawning Observation: 1= 1-2x During Session Anxiety or Irritability: 2=Irritable/Anxious Goose Flesh Skin: 3=Piloerection COWS Score: 22 CIWA Score Nausea/Vomitin-No Nausea/No Vomiting Muscle Tremors: None Anxiety: 4-Mod. Anxious/Guarded Agitation: 4-Moderately Restless Paroxysmal Sweats: 3 Orientation: 2-Disoriented Date<2 days Tacttile Disturbances: 2-Mild Itch/Numbness/Burn Auditory Disturbances: 0-None Visual Disturbances: 0-None Headache: 0-None Present CIWA-Ar Total Score: 15 - Admission Criteria [facility]ASAS Guidelines: Admission for Medically Managed Detox: Requires at least one of the followin. CIWA greater than 12 2. Seizures within the past 24 hours 3. Delirium tremens within the past 24 hours 4. Hallucinations within the past 24 hours 5. Acute intervention needed for co occurring medical disorder 6. Acute intervention needed for co occurring psychiatric disorder 7. Severe withdrawal that cannot be handled at a lower level of care (continued vomiting, continued diarrhea, abnormal vital signs) requiring intravenous medication and/or fluids 8. Patient presents the following: CIWA greater than 12 Admission Criteria Met: Admission criteria met Admitting History and Physical - Smoking History Smoking history: Current every day smoker Have you smoked in the past 12 months: Yes Aproximately how many cigarettes per day: 20 - Alcohol/Substance Use Hx Alcohol Use: No Admission ROS BHS - HPI Chief Complaint: C/O WITHDRAWAL SX'S. SEEKING DETOX FROM HEROIN/XANAX Allergies/Adverse Reactions: Allergies Allergy/AdvReac Type Severity Reaction Status Date / Time fish derived Allergy Severe Hives Verified 02/21/19 11:06 No Known Drug Allergies Allergy Verified 02/21/19 11:06 fish Allergy Severe Hives Uncoded 06/25/19 23:46 History of Present Illness: HERE FOR HEROIN/ XANAX DETOX SELF REFERRED LAST HERE 2017. PRESENTS WITH WITHDRAWAL SX'S CLIENT REPORTS DAILY HEROIN DAILY XANAX 2 TIME A MONTH IVDU, DENIES OVERDOSE, BLACK OUTS, SEIZURES, AVH LONGEST CLEAN TIME 2 YEARS. MOST RECENT 4 MONTH RELPASING 3 WEEKS AGO HOMELESS, UNEMPLOYED, DENIES LEGALS Exam Limitations: No Limitations - Ebola screening Have you traveled outside of the country in the last 21 days: No (N) Have you had contact with anyone from an Ebola affected area: No Do you have a fever: No - Review of Systems Constitutional: Chills, Malaise, Night Sweats, Changes in sleep EENT: reports: No Symptoms Reported Respiratory: reports: No Symptoms reported Cardiac: reports: No Symptoms Reported GI: reports: Poor Fluid Intake, Abdominal cramping : reports: No Symptoms Reported Musculoskeletal: reports: Back Pain, Joint Pain Integumentary: reports: Other (TRACK GARCIA) Neuro: reports: No Symptoms reported Endocrine: reports: No Symptoms Reported Hematology: reports: No Symptoms Reported Psychiatric: reports: Orientated x3, Agitated (IRRITABLE), Anxious, Depressed ( DENIES SI) Other Systems: Reviewed and Negative Patient History - Patient Medical History Hx Anemia: No Hx Asthma: No Hx Chronic Obstructive Pulmonary Disease (COPD): No Hx Cancer: No Hx Cardiac Disorders: No Hx Congestive Heart Failure: No Hx Hypertension: No Hx Hypercholesterolemia: No Hx Pacemaker: No HX Cerebrovascular Accident: No Hx Seizures: Yes (drug related once in 2016) Hx Dementia: No Hx Diabetes: No Hx Gastrointestinal Disorders: No Hx Liver Disease: No Hx Genitourinary Disorders: No Hx Sexually Transmitted Disorders: No Hx Renal Disease (ESRD): No Hx Thyroid Disease: No Hx Human Immunodeficiency Virus (HIV): No Hx Hepatitis C: Yes (NO TXMENT) Hx Depression: No Hx Suicide Attempt: No Hx Bipolar Disorder: No Hx Schizophrenia: No Other Medical History: PTSD, ADHD - Patient Surgical History Past Surgical History: No Hx Neurologic Surgery: No Hx Cataract Extraction: No Hx Cardiac Surgery: No Hx Lung Surgery: No Hx Breast Surgery: No Hx Breast Biopsy: No Hx Abdominal Surgery: No Hx Appendectomy: No Hx Cholecystectomy: No Hx Genitourinary Surgery: No Hx Section: No Hx Orthopedic Surgery: No Anesthesia Reaction: No - PPD History Previous Implant?: Yes Documented Results: Negative w/proof Implanted On Prior R Admission?: Yes Date: 03/17/17 Results: 0 mm PPD to be Administered?: Yes - Smoking Cessation Smoking history: Current every day smoker Have you smoked in the past 12 months: Yes Aproximately how many cigarettes per day: 20 Cigars Per Day: 0 Hx Chewing Tobacco Use: No Initiated information on smoking cessation: Yes 'Breaking Loose' booklet given: 06/26/19 - Substance & Tx. History Hx Alcohol Use: No Hx Substance Use: Yes Substance Use Type: Cocaine, Heroin, Marijuana, Opiates, Tranquilizers (XANAX) Hx Substance Use Treatment: Yes ([facility]) - Substances abused Heroin Substance route: Injection Frequency: Daily Amount used: 5 bags daily Age of first use: 22 Date of last use: 06/25/19 Alprazolam (Xanax) Substance route: Oral Frequency: 1-3 times last 30 days Amount used: 2mg Age of first use: 21 Date of last use: 06/24/19 Admission Physical Exam BHS - Vital Signs Vital Signs: Vital Signs - 24 hr 06/25/19 06/26/19 23:49 00:13 Temperature 9704 F H 9704 F H Pulse Rate 89 89 Respiratory 18 18 Rate Blood Pressure 142/81 142/81 - Physical General Appearance: Yes: Moderate Distress, Irritable, Anxious HEENTM: Yes: EOMI, Normocephalic, Normal Voice, JUAN, Pharynx Normal Respiratory: Yes: Chest Non-Tender, Lungs Clear, Normal Breath Sounds, No Accessory Muscle Use Neck: Yes: No masses,lesions,Nodules, Supple, Trachea in good position Breast: Yes: Breast Exam Deferred Cardiology: Yes: Regular Rhythm, Regular Rate, S1, S2 Abdominal: Yes: Normal Bowel Sounds, Non Tender, Soft Genitourinary: Yes: Within Normal Limits Back: Yes: Normal Inspection Musculoskeletal: Yes: full range of Motion, Gait Steady Extremities: Yes: Normal Capillary Refill, Normal Inspection, Non-Tender Neurological: Yes: Fully Oriented, Alert, Motor Strength 5/5, Depressed Affect ( DENIES SI) Integumentary: Yes: Dry, Warm, Track Garcia (TO BOTH ARMS. GENERALIZED AREAS OF BRUISING TO BOTH ARMS FROMMISSED IV ATTEMPTS. NO S/SX OF INFECTION), Other ( PILORECTION) Lymphatic: Yes: Within Normal Limits - Diagnostic (1) Cannabis dependence, uncomplicated Current Visit: Yes Status: Acute (2) Homeless Current Visit: Yes Status: Suspected (3) IVDU (intravenous drug user) Current Visit: Yes Status: Acute (4) Track garcia due to intravenous drug abuse Current Visit: Yes Status: Acute (5) ADHD (attention deficit hyperactivity disorder) Current Visit: Yes Status: Chronic Comment: As per self-report. (6) Cocaine dependence Current Visit: Yes Status: Acute Qualifiers: Substance use status: uncomplicated Qualified Code(s): F14.20 - Cocaine dependence, uncomplicated (7) Insomnia Current Visit: Yes Status: Chronic Qualifiers: Insomnia type: drug-induced Qualified Code(s): F19.982 - Other psychoactive substance use, unspecified with psychoactive substance-induced sleep disorder (8) Nicotine dependence Current Visit: Yes Status: Chronic Qualifiers: Nicotine product type: cigarettes Substance use status: uncomplicated Qualified Code(s): F17.210 - Nicotine dependence, cigarettes, uncomplicated (9) Sedative, hypnotic or anxiolytic dependence with withdrawal, uncomplicated Current Visit: Yes Status: Acute (10) Substance induced mood disorder Current Visit: Yes Status: Acute (11) History of seizure Current Visit: Yes Status: Suspected (12) Post traumatic stress disorder (PTSD) Current Visit: Yes Status: Suspected Comment: As per self- report.Asymptomatic in this interview. Cleared for Admission [facility] - Detox or Rehab [facility] Level of Care: Medically Managed Detox Regimen/Protocol: Methadone/Valium Claeared for Rehab Admission: No Breathalyzer - Breathalyzer Breathalyzer: 0 Urine Drug Screen - Test Device Lot number: [id number] Expiration date: 03/03/21 - Control Is test valid?: Yes - Results Drug screen NEGATIVE: No Urine drug screen results: THC-Marijuana, PRAVEEN-Cocaine, AMP-Amphetamines, FEN- Fentanyl, MOP-Opiates, BZO-Benzodiazepines Inpatient Rehab Admission - Rehab Decision to Admit Inpatient rehab admission?: No
[2019-06-26] MEDS ORDERED: MAG HYDROX/AL HYDROX/SIMETH 30 ML UNIT-DOSE CUP PO PRN (01:39)
[2019-06-26] MEDS ORDERED: BISMUTH SUBSALICYLATE 524 MG/30 ML UD PO PRN (01:39)
[2019-06-26] MEDS ORDERED: hydrOXYzine PAMOATE 25 MG CAPSULE (FP) PO PRN (01:39)
[2019-06-26] MEDS ORDERED: cloNIDine HCL 0.1 MG TABLET PO PRN (01:39)
[2019-06-26] MEDS ORDERED: DICYCLOMINE HCL 10 MG CAPSULE PO PRN (01:39)
[2019-06-26] MEDS ORDERED: IBUPROFEN 400 MG TABLET (FP) PO PRN (01:39)
[2019-06-26] MEDS ORDERED: ACETAMINOPHEN 325 MG TABLET (FP) PO PRN ×2 (01:39)
[2019-06-26] MEDS ORDERED: ONDANSETRON *ODT* 4 MG TABLET SL PRN (01:39)
[2019-06-26] MEDS ORDERED: METHOCARBAMOL 500 MG TABLET PO PRN (01:39)
[2019-06-26] MEDS ORDERED: MAGNESIUM CITRATE 300 ML BOTTLE PO PRN (01:39)
[2019-06-26] MEDS ORDERED: MENTHOL/PHENOL 1 EACH UD MM PRN (01:39)
[2019-06-26] MEDS ORDERED: MELATONIN 5 MG TABLETS PO PRN (01:39)
[2019-06-26] MEDS ORDERED: guaiFENesin 200 MG/10 ML 10 ML UNIT-DOSE CUPS PO PRN (01:39)
[2019-06-26] MEDS ORDERED: MAGNESIUM HYDROX 2400MG/30ML ORAL SUSPENSION 30 ML CUP PO PRN (01:39)
[2019-06-26] MEDS ORDERED: P-EPHED 60MG/TRIPROLIDI 2.5MG TABLET PO PRN (01:39)
[2019-06-26] MEDS ORDERED: METHADONE HCL 10 MG TABLET (FOR DETOX USE ONLY) PO ONE (01:39)
[2019-06-26] MEDS: diazePAM 5 MG TABLET PO PRN ×2 (02:28→11:39)
[2019-06-26] MEDS: diazePAM 5 MG TABLET PO SCH ×3 (05:30→22:12)
[2019-06-26] MEDS ORDERED: METHADONE HCL 10 MG TABLET PO ONE (10:00)
[2019-06-26 10:55] LABS: ALBUMIN 3.5 g/dl (3.4-5.0); BILIRUBIN,TOTAL 0.6 mg/dL (0.2-1); BLOOD UREA NITROGEN 16.8 mg/dL (7-18); CALCIUM 8.6 mg/dL (8.5-10.1); CREATININE 0.8 mg/dL (0.55-1.3); POTASSIUM 4.4 mmol/L (3.5-5.1); TOT PROT 6.8 g/dl (6.4-8.2)
[2019-06-26 11:17] LABS: HEMATOCRIT 39.3 % (35.4-49); HEMOGLOBIN 13.5 GM/dL (11.7-16.9); MCHC 34.4 g/dl (32.0-35.9); MEAN CELL VOLUME 84.4 fl (80-96); MEAN PLT VOLUME 8.3 fl (7.5-11.1); PLATELET COUNT 269 K/MM3 (134-434); RBC 4.66 M/mm3 (4.00-5.60); RDW 13.6 % (11.9-15.9); WHITE BLOOD COUNT 7.6 K/mm3 (4.0-10.0)
[2019-06-26] MEDS: PRENATAL VITAMINS W/ FOLIC ACID TABLET (FP) PO SCH (11:36)
[2019-06-26] MEDS: NICOTINE 21 MG/24 HOURS TOPICAL PATCH TD SCH (11:36)
[2019-06-26] MEDS ORDERED: PNEUMOC 13-VAL CONJ-DIP CRM/PF 0.5 ML DISP.SYRIN IM ONE (12:00)
[2019-06-26] MEDS: THIAMINE HCL 100 MG TABLET (FP) PO SCH (22:12)
[2019-06-27] MEDS: diazePAM 5 MG TABLET PO SCH ×2 (05:41→17:46)
[2019-06-27] MEDS ORDERED: METHADONE HCL 5 MG TABLET (FOR DETOX USE ONLY) ONE (08:39)
[2019-06-27] MEDS ORDERED: METHADONE HCL 10 MG TABLET (FOR DETOX USE ONLY) ONE (08:39)
--- NOTE | 2019-06-27 08:46 | CONSULT ---
[facility] Psychiatric Consult - Data Date of interview: 06/27/19 Admission source: [facility] Identifying data: Patient is a 29 year old single ir[place]i male, father of one , unemployed, homeless, and is supported by welfare benefits. This is one of multiple admissions for patient. Patient admitted to for opiate and benzodiazepine dependence. Substance Abuse History: Smoking Cessation. Smoking history: Current every day smoker. Have you smoked in the past 12 months: Yes. Aproximately how many cigarettes per day: 20. Cigars Per Day: 0. Hx Chewing Tobacco Use: No. Initiated information on smoking cessation: Yes. 'Breaking Loose' booklet given : 06/26/19. - Substance & Tx. History. Hx Alcohol Use: No. Hx Substance Use: Yes. Substance Use Type: Cocaine, Heroin, Marijuana, Opiates, Tranquilizers ( XANAX). Hx Substance Use Treatment: Yes ([facility]). - Substances abused. * * Heroin. Substance route: Injection. Frequency: Daily. Amount used: 5 bags daily. Age of first use: 22. Date of last use: 06/25/19. Alprazolam (Xanax ). Substance route: Oral. Frequency: 1-3 times last 30 days. Amount used: 2mg. Age of first use: 21. Date of last use: 06/24/19 Medical History: Seizures (drug related), Hep C Psychiatric History: Patient's first psychiatric contact was at approximately 8 years of age due to acting out and difficulty focusing. Denies receiving psychotropic medications. Then at age 12 he was diagnoed with ADHD and was prescribed various psychotropic medications but his parents were not in agreement with their son accepting medications. Mr. Mahan was also admitted to [facility] as an adolescent due to difficulties in school. Patient unable to recall medications prescribed. As an adult he reports one admission to the psychiatric emergency room after [facility] recommended he see a psychiatrist due to issues with his mood. Patient reports past diagnosis of PTSD and ADHD. Stated to verse writer that he was diagnosed with schizophrenia by a psychiatrist at [facility] after he refused to give her information by informing her that he was employed by the [employer]. Stated to verse writer that he only mentioned working for the [employer] because he did not want to discuss anything with that provider. Patient denies history of psychotic symptoms. Reports past history of accepting adderal + Seroquel 200mg HS. Unsure as to why he was prescribed seroquel and is no longer on that medication. States he is provided with outpatient psychiatric care by a substance abuse physican at [facility] ([facility])and is prescribed Lunesta + adderall. Patient denies history of suicide attempt. At present patient reports difficulty sleeping. No psychosis noted. Physical/Sexual Abuse/Trauma History: denies. Mental Status Exam - Mental Status Exam Alert and Oriented to: Time, Place, Person Cognitive Function: Good Patient Appearance: Well Groomed Mood: Sad Affect: Mood Congruent Patient Behavior: Cooperative Speech Pattern: Clear Voice Loudness: Normal Thought Process: Intact, Goal Oriented Thought Disorder: Not Present Hallucinations: Denies Suicidal Ideation: Denies Homicidal Ideation: Denies Insight/Judgement: Poor Sleep: Poorly Appetite: Fair Muscle strength/Tone: Normal Gait/Station: Normal Psychiatric Findings - Problem List ([place] 1, 2,3) (1) ADHD (attention deficit hyperactivity disorder) Current Visit: No Status: Chronic Comment: As per self-report. (2) Substance-induced sleep disorder Current Visit: Yes Status: Acute (3) Cannabis dependence, uncomplicated Current Visit: Yes Status: Acute (4) Cocaine dependence Current Visit: Yes Status: Acute Qualifiers: Substance use status: uncomplicated Qualified Code(s): F14.20 - Cocaine dependence, uncomplicated (5) Sedative, hypnotic or anxiolytic dependence with withdrawal, uncomplicated Current Visit: Yes Status: Acute - Initial Treatment Plan Initial Treatment Plan: Psychoeducation provided. Detoxification in progress. Will order Belsomra 10mg HS. Benefits and side effects discussed. Verbal consent given.
[2019-06-27] MEDS ORDERED: METHADONE (DETOX) 20 MG, METHADONE (DETOX) 5 MG PO ONE (10:00)
[2019-06-27] MEDS: PRENATAL VITAMINS W/ FOLIC ACID TABLET (FP) PO SCH (10:34)
[2019-06-27] MEDS: NICOTINE 21 MG/24 HOURS TOPICAL PATCH TD SCH (10:34)
[2019-06-27] MEDS ORDERED: PNEUMOC 13-VAL CONJ-DIP CRM/PF 0.5 ML DISP.SYRIN IM ONE (12:30)
--- NOTE | 2019-06-27 14:26 | PN ---
S CIWA - CIWA Score Nausea/Vomitin-Mild Nausea/No Vomiting Muscle Tremors: 3 Anxiety: 4-Mod. Anxious/Guarded Agitation: 4-Moderately Restless Paroxysmal Sweats: 2 Orientation: 0-Oriented Tacttile Disturbances: 1-Very Mild Itch/Numbness Auditory Disturbances: 0-None Visual Disturbances: 0-None Headache: 1-Very Mild CIWA-Ar Total Score: 16 BHS COWS - Scale Resting Pulse: 0= [place] 80 or Below Sweatin= Chills/Flushing Restless Observation: 0= Sits Still Pupil Size: 1= Pupils >than Normal Bone or Joint Aches: 2= Severe Diffuse Aches Runny Nose/ Eye Tearin= Nasal Congestion GI Upset > 30mins: 1= Stomach Cramp Tremor Observation of Outstretched Hands: 2= Slight Tremor Visible Yawning Observation: 1= 1-2x During Session Anxiety or Irritability: 2=Irritable/Anxious Goose Flesh Skin: 3=Piloerection COWS Score: 14 S Progress Note (SOAP) Subjective: 29 years old male admitted on 06/26/19 for benzo and opiate withdrawal sx management treated wtih valium and methadone detox regimen ambulating on hallway social with peers and staff discuss medication assisted treatment program brass pickler narcan from pharmacy Objective: 06/27/19 14:25 Vital Signs Temperature 96.3 F L 06/27/19 09:36 Pulse Rate 63 06/27/19 09:36 Respiratory Rate 18 06/27/19 09:36 Blood Pressure 143/93 06/27/19 09:36 O2 Sat by Pulse Oximetry (%) Laboratory Last Values WBC 7.6 K/mm3 (4.0-10.0) 06/26/19 07:40 RBC 4.66 M/mm3 (4.00-5.60) 06/26/19 07:40 Hgb 13.5 GM/dL (11.7-16.9) 06/26/19 07:40 Hct 39.3 % (35.4-49) 06/26/19 07:40 MCV 84.4 fl (80-96) 06/26/19 07:40 MCH 29.0 pg (25.7-33.7) 06/26/19 07:40 MCHC 34.4 g/dl (32.0-35.9) 06/26/19 07:40 RDW 13.6 % (11.9-15.9) 06/26/19 07:40 Plt Count 269 K/MM3 (134-434) 06/26/19 07:40 MPV 8.3 fl (7.5-11.1) D 06/26/19 07:40 Sodium 141 mmol/L (136-145) 06/26/19 07:40 Potassium 4.4 mmol/L (3.5-5.1) 06/26/19 07:40 Chloride 106 mmol/L (98-107) 06/26/19 07:40 Carbon Dioxide 32 mmol/L (21-32) 06/26/19 07:40 Anion Gap 3 MMOL/L (8-16) L 06/26/19 07:40 BUN 16.8 mg/dL (7-18) 06/26/19 07:40 Creatinine 0.8 mg/dL (0.55-1.3) 06/26/19 07:40 Est GFR (CKD-EPI)AfAm 138.93 06/26/19 07:40 Est GFR (CKD-EPI)NonAf 119.87 06/26/19 07:40 Random Glucose 75 mg/dL (74-106) 06/26/19 07:40 Calcium 8.6 mg/dL (8.5-10.1) 06/26/19 07:40 Total Bilirubin 0.6 mg/dL (0.2-1) 06/26/19 07:40 AST 89 U/L (15-37) H 06/26/19 07:40 ALT 107 U/L (13-61) H 06/26/19 07:40 Alkaline Phosphatase 87 U/L (45-117) 06/26/19 07:40 Total Protein 6.8 g/dl (6.4-8.2) 06/26/19 07:40 Albumin 3.5 g/dl (3.4-5.0) 06/26/19 07:40 RPR Titer Nonreactive (NONREACTIVE) 06/26/19 07:40 lab noted Assessment: 06/27/19 14:26 benzo and opiate withdrawal sx Plan: continue valium and methadone detox regimen
[2019-06-27] MEDS: NICOTINE POLACRILEX 2 MG GUM BUC PRN (17:44)
[2019-06-27] MEDS: SUVOREXANT 10 MG TABLET PO PRN (23:23)
[2019-06-27] MEDS: THIAMINE HCL 100 MG TABLET (FP) PO SCH (23:44)
[2019-06-28] MEDS ORDERED: diazePAM 5 MG TABLET PO ONE (06:00)
[2019-06-28] MEDS: NICOTINE POLACRILEX 2 MG GUM BUC PRN ×2 (09:11→19:19)
[2019-06-28] MEDS ORDERED: METHADONE HCL 10 MG TABLET (FOR DETOX USE ONLY) PO ONE (10:00)
[2019-06-28] MEDS: diazePAM 5 MG TABLET PO PRN (10:08)
[2019-06-28] MEDS: PRENATAL VITAMINS W/ FOLIC ACID TABLET (FP) PO SCH (10:08)
[2019-06-28] MEDS: NICOTINE 21 MG/24 HOURS TOPICAL PATCH TD SCH (10:09)
--- NOTE | 2019-06-28 13:17 | PN ---
S CIWA - CIWA Score Nausea/Vomitin-Mild Nausea/No Vomiting Muscle Tremors: 4-Moderate,w/Arms Extend Anxiety: 3 Agitation: 2 Paroxysmal Sweats: 1-Minimal Palms Moist Orientation: 0-Oriented Tacttile Disturbances: 1-Very Mild Itch/Numbness Auditory Disturbances: 0-None Visual Disturbances: 0-None Headache: 1-Very Mild CIWA-Ar Total Score: 13 BHS COWS - Scale Resting Pulse: 0= [place] 80 or Below Sweatin= Chills/Flushing Restless Observation: 0= Sits Still Pupil Size: 1= Pupils >than Normal Bone or Joint Aches: 1= Mild Discomfort Runny Nose/ Eye Tearin= Nasal Congestion GI Upset > 30mins: 1= Stomach Cramp Tremor Observation of Outstretched Hands: 2= Slight Tremor Visible Yawning Observation: 1= 1-2x During Session Anxiety or Irritability: 2=Irritable/Anxious Goose Flesh Skin: 3=Piloerection COWS Score: 13 S Progress Note (SOAP) Subjective: 29 years old male admitted on 06/26/19 for benzo and opiate withdrawal sx management treated with valium and methadone detox regimen requests to be seen by a psychiatrist that he has trouble control his anxiety especially at night psychiatric referral Objective: 06/28/19 13:16 Vital Signs Temperature 99.4 F 06/28/19 13:13 Pulse Rate 69 06/28/19 13:13 Respiratory Rate 16 06/28/19 13:13 Blood Pressure 135/80 06/28/19 13:13 O2 Sat by Pulse Oximetry (%) Laboratory Last Values WBC 7.6 K/mm3 (4.0-10.0) 06/26/19 07:40 RBC 4.66 M/mm3 (4.00-5.60) 06/26/19 07:40 Hgb 13.5 GM/dL (11.7-16.9) 06/26/19 07:40 Hct 39.3 % (35.4-49) 06/26/19 07:40 MCV 84.4 fl (80-96) 06/26/19 07:40 MCH 29.0 pg (25.7-33.7) 06/26/19 07:40 MCHC 34.4 g/dl (32.0-35.9) 06/26/19 07:40 RDW 13.6 % (11.9-15.9) 06/26/19 07:40 Plt Count 269 K/MM3 (134-434) 06/26/19 07:40 MPV 8.3 fl (7.5-11.1) D 06/26/19 07:40 Sodium 141 mmol/L (136-145) 06/26/19 07:40 Potassium 4.4 mmol/L (3.5-5.1) 06/26/19 07:40 Chloride 106 mmol/L (98-107) 06/26/19 07:40 Carbon Dioxide 32 mmol/L (21-32) 06/26/19 07:40 Anion Gap 3 MMOL/L (8-16) L 06/26/19 07:40 BUN 16.8 mg/dL (7-18) 06/26/19 07:40 Creatinine 0.8 mg/dL (0.55-1.3) 06/26/19 07:40 Est GFR (CKD-EPI)AfAm 138.93 06/26/19 07:40 Est GFR (CKD-EPI)NonAf 119.87 06/26/19 07:40 Random Glucose 75 mg/dL (74-106) 06/26/19 07:40 Calcium 8.6 mg/dL (8.5-10.1) 06/26/19 07:40 Total Bilirubin 0.6 mg/dL (0.2-1) 06/26/19 07:40 AST 89 U/L (15-37) H 06/26/19 07:40 ALT 107 U/L (13-61) H 06/26/19 07:40 Alkaline Phosphatase 87 U/L (45-117) 06/26/19 07:40 Total Protein 6.8 g/dl (6.4-8.2) 06/26/19 07:40 Albumin 3.5 g/dl (3.4-5.0) 06/26/19 07:40 RPR Titer Nonreactive (NONREACTIVE) 06/26/19 07:40 lab noted Assessment: 06/28/19 13:17 benzo and opiate withdrawal sx Plan: continue valium and methadone detox regimen
--- NOTE | 2019-06-28 17:54 | PN ---
ANYI Progress Note Note: Psychiatry Attending's note (follow-up) : Approached by patient. Complaints : insomnia; belsomra not effective. Mr Mahan requests seroquel at bedtime. " A low dose, 100 mg, only while I am in detox." Patient is made aware of risk of metabolic syndrome. In addition to movement disorders, hypotension and sedation. Patient insists that " seroquel helped me in the past." Principles of sleep hygiene discussed with the patient. Intervention : seroquel 100 mg po hs. Ordered. Patient agrees. Gives verbal consent to
[2019-06-28 18:58] LABS: URINE APPEARANCE CLEAR; URINE BILIRUBIN NEGATIVE (NEGATIVE); URINE COLOR DK YELLOW; URINE GLUCOSE (UA) NEGATIVE (NEGATIVE); URINE KETONE TRACE (NEGATIVE); URINE LEUK ESTERASE NEGATIVE (NEGATIVE); URINE NITRITE NEGATIVE (NEGATIVE); URINE PROTEIN NEGATIVE (NEGATIVE)
[2019-06-28] MEDS: THIAMINE HCL 100 MG TABLET (FP) PO SCH (22:05)
[2019-06-28] MEDS: QUEtiapine FUMARATE 100 MG TABLET (FP) PO SCH (22:05)
[2019-06-28] MEDS: SUVOREXANT 10 MG TABLET PO PRN (22:07)
[2019-06-29] MEDS ORDERED: METHADONE HCL 5 MG TABLET (FOR DETOX USE ONLY) ONE (08:24)
[2019-06-29] MEDS ORDERED: METHADONE HCL 10 MG TABLET (FOR DETOX USE ONLY) ONE (08:24)
[2019-06-29] MEDS: PRENATAL VITAMINS W/ FOLIC ACID TABLET (FP) PO SCH (09:31)
[2019-06-29] MEDS: NICOTINE 21 MG/24 HOURS TOPICAL PATCH TD SCH (09:31)
--- NOTE | 2019-06-29 09:45 | PN ---
S CIWA - CIWA Score Nausea/Vomitin-Mild Nausea/No Vomiting Muscle Tremors: 3 Anxiety: 2 Agitation: 1-Slight > Activity Paroxysmal Sweats: 2 Orientation: 0-Oriented Tacttile Disturbances: 0-None Auditory Disturbances: 0-None Visual Disturbances: 0-None Headache: 0-None Present CIWA-Ar Total Score: 9 BHS COWS - Scale Resting Pulse: 0= [place] 80 or Below Sweatin= Chills/Flushing Restless Observation: 0= Sits Still Pupil Size: 0= Normal to Room Light Bone or Joint Aches: 1= Mild Discomfort Runny Nose/ Eye Tearin= Nasal Congestion GI Upset > 30mins: 1= Stomach Cramp Tremor Observation of Outstretched Hands: 2= Slight Tremor Visible Yawning Observation: 1= 1-2x During Session Anxiety or Irritability: 2=Irritable/Anxious Goose Flesh Skin: 0=Smooth Skin COWS Score: 9 S Progress Note (SOAP) Subjective: 29 years old male admitted on 08/26/18 for benzo and opiate withdrawal sx management treated with valium and methadone detox regimen resting on bed feeling tired prefers to sleep longer encourage to consider medication assisted treatment program strong recommend diamond picker narcan from pharmacy Objective: 06/29/19 09:46 Vital Signs Temperature 98.3 F 06/29/19 09:27 Pulse Rate 65 06/29/19 09:27 Respiratory Rate 18 06/29/19 09:27 Blood Pressure 110/68 06/29/19 09:27 O2 Sat by Pulse Oximetry (%) Laboratory Last Values WBC 7.6 K/mm3 (4.0-10.0) 06/26/19 07:40 RBC 4.66 M/mm3 (4.00-5.60) 06/26/19 07:40 Hgb 13.5 GM/dL (11.7-16.9) 06/26/19 07:40 Hct 39.3 % (35.4-49) 06/26/19 07:40 MCV 84.4 fl (80-96) 06/26/19 07:40 MCH 29.0 pg (25.7-33.7) 06/26/19 07:40 MCHC 34.4 g/dl (32.0-35.9) 06/26/19 07:40 RDW 13.6 % (11.9-15.9) 06/26/19 07:40 Plt Count 269 K/MM3 (134-434) 06/26/19 07:40 MPV 8.3 fl (7.5-11.1) D 06/26/19 07:40 Sodium 141 mmol/L (136-145) 06/26/19 07:40 Potassium 4.4 mmol/L (3.5-5.1) 06/26/19 07:40 Chloride 106 mmol/L (98-107) 06/26/19 07:40 Carbon Dioxide 32 mmol/L (21-32) 06/26/19 07:40 Anion Gap 3 MMOL/L (8-16) L 06/26/19 07:40 BUN 16.8 mg/dL (7-18) 06/26/19 07:40 Creatinine 0.8 mg/dL (0.55-1.3) 06/26/19 07:40 Est GFR (CKD-EPI)AfAm 138.93 06/26/19 07:40 Est GFR (CKD-EPI)NonAf 119.87 06/26/19 07:40 Random Glucose 75 mg/dL (74-106) 06/26/19 07:40 Calcium 8.6 mg/dL (8.5-10.1) 06/26/19 07:40 Total Bilirubin 0.6 mg/dL (0.2-1) 06/26/19 07:40 AST 89 U/L (15-37) H 06/26/19 07:40 ALT 107 U/L (13-61) H 06/26/19 07:40 Alkaline Phosphatase 87 U/L (45-117) 06/26/19 07:40 Total Protein 6.8 g/dl (6.4-8.2) 06/26/19 07:40 Albumin 3.5 g/dl (3.4-5.0) 06/26/19 07:40 Urine Color Dk yellow 06/28/19 15:11 Urine Appearance Clear 06/28/19 15:11 Urine pH 7.0 (5.0-8.0) 06/28/19 15:11 Ur Specific [place] 1.030 (1.010-1.035) 06/28/19 15:11 Urine Protein Negative (NEGATIVE) 06/28/19 15:11 Urine Glucose (UA) Negative (NEGATIVE) 06/28/19 15:11 Urine Ketones Trace (NEGATIVE) H 06/28/19 15:11 Urine Blood Negative (NEGATIVE) 06/28/19 15:11 Urine Nitrite Negative (NEGATIVE) 06/28/19 15:11 Urine Bilirubin Negative (NEGATIVE) 06/28/19 15:11 Urine Urobilinogen 1.0 mg/dL (0.2-1.0) 06/28/19 15:11 Ur Leukocyte Esterase Negative (NEGATIVE) 06/28/19 15:11 RPR Titer Nonreactive (NONREACTIVE) 06/26/19 07:40 lab noted discuss drug related liver insult Assessment: 06/29/19 09:47 benzo and opiate withdrawal sx Plan: continue valium and methadone detox regimen
[2019-06-29] MEDS ORDERED: METHADONE (DETOX) 10 MG, METHADONE (DETOX) 5 MG PO ONE (10:00)
--- NOTE | 2019-06-29 10:25 | EKG ---
Test Reason : Blood Pressure : / mmHG Vent. Rate : 053 BPM Atrial Rate : 053 BPM P-R Int : 136 ms QRS Dur : 098 ms QT Int : 428 ms P-R-T Axes : 056 083 070 degrees QTc Int : 401 ms SINUS BRADYCARDIA OTHERWISE NORMAL ECG WHEN COMPARED WITH ECG OF 25-SEP-2017 15:46, NO SIGNIFICANT CHANGE WAS FOUND Confirmed by MD Nito, Driss ([id number]) on 06/29/2019 10:24:31 AM Referred By: Confirmed By:Driss Beauchamp MD
[2019-06-29] MEDS: NICOTINE POLACRILEX 2 MG GUM BUC PRN (11:47)
[2019-06-29] MEDS: SUVOREXANT 10 MG TABLET PO PRN (22:06)
[2019-06-29] MEDS: QUEtiapine FUMARATE 100 MG TABLET (FP) PO SCH (22:06)
[2019-06-29] MEDS: THIAMINE HCL 100 MG TABLET (FP) PO SCH (22:07)
[2019-06-30 09:18] VITALS: BP 135/68; PULSE 57; TEMP 96.9
[2019-06-30] MEDS ORDERED: METHADONE HCL 10 MG TABLET (FOR DETOX USE ONLY) PO ONE (10:00)
[2019-06-30] MEDS: NICOTINE 21 MG/24 HOURS TOPICAL PATCH TD SCH (10:16)
[2019-06-30] MEDS: PRENATAL VITAMINS W/ FOLIC ACID TABLET (FP) PO SCH (10:16)
[2019-06-30] MEDS: NICOTINE POLACRILEX 2 MG GUM BUC PRN (10:17)
--- NOTE | 2019-06-30 13:30 | DS ---
[facility] Detox Discharge Summary Admission Date: 06/26/19 Discharge Date: 06/30/19 - History Present History: Opioid Dependence, Sedative Dependence Additional Comments: 29 years old male admitted on 06/26/19 for benzo and opiate withdrawal sx management treated with valium and methadone detox regimen patient is alert oriented x 3 respiratory clear lung bilaterally on auscultation abdomen soft no rebound tenderness extremities full range of motion - Physical Exam Results Vital Signs: Vital Signs Temperature 96.9 F L 06/30/19 09:18 Pulse Rate 57 L 06/30/19 09:18 Respiratory Rate 18 06/30/19 09:18 Blood Pressure 135/68 06/30/19 09:18 O2 Sat by Pulse Oximetry (%) Pertinent Admission Physical Exam Findings: benzo and opiate withdrawal sx Laboratory Last Values WBC 7.6 K/mm3 (4.0-10.0) 06/26/19 07:40 RBC 4.66 M/mm3 (4.00-5.60) 06/26/19 07:40 Hgb 13.5 GM/dL (11.7-16.9) 06/26/19 07:40 Hct 39.3 % (35.4-49) 06/26/19 07:40 MCV 84.4 fl (80-96) 06/26/19 07:40 MCH 29.0 pg (25.7-33.7) 06/26/19 07:40 MCHC 34.4 g/dl (32.0-35.9) 06/26/19 07:40 RDW 13.6 % (11.9-15.9) 06/26/19 07:40 Plt Count 269 K/MM3 (134-434) 06/26/19 07:40 MPV 8.3 fl (7.5-11.1) D 06/26/19 07:40 Sodium 141 mmol/L (136-145) 06/26/19 07:40 Potassium 4.4 mmol/L (3.5-5.1) 06/26/19 07:40 Chloride 106 mmol/L (98-107) 06/26/19 07:40 Carbon Dioxide 32 mmol/L (21-32) 06/26/19 07:40 Anion Gap 3 MMOL/L (8-16) L 06/26/19 07:40 BUN 16.8 mg/dL (7-18) 06/26/19 07:40 Creatinine 0.8 mg/dL (0.55-1.3) 06/26/19 07:40 Est GFR (CKD-EPI)AfAm 138.93 06/26/19 07:40 Est GFR (CKD-EPI)NonAf 119.87 06/26/19 07:40 Random Glucose 75 mg/dL (74-106) 06/26/19 07:40 Calcium 8.6 mg/dL (8.5-10.1) 06/26/19 07:40 Total Bilirubin 0.6 mg/dL (0.2-1) 06/26/19 07:40 AST 89 U/L (15-37) H 06/26/19 07:40 ALT 107 U/L (13-61) H 06/26/19 07:40 Alkaline Phosphatase 87 U/L (45-117) 06/26/19 07:40 Total Protein 6.8 g/dl (6.4-8.2) 06/26/19 07:40 Albumin 3.5 g/dl (3.4-5.0) 06/26/19 07:40 Urine Color Dk yellow 06/28/19 15:11 Urine Appearance Clear 06/28/19 15:11 Urine pH 7.0 (5.0-8.0) 06/28/19 15:11 Ur Specific [place] 1.030 (1.010-1.035) 06/28/19 15:11 Urine Protein Negative (NEGATIVE) 06/28/19 15:11 Urine Glucose (UA) Negative (NEGATIVE) 06/28/19 15:11 Urine Ketones Trace (NEGATIVE) H 06/28/19 15:11 Urine Blood Negative (NEGATIVE) 06/28/19 15:11 Urine Nitrite Negative (NEGATIVE) 06/28/19 15:11 Urine Bilirubin Negative (NEGATIVE) 06/28/19 15:11 Urine Urobilinogen 1.0 mg/dL (0.2-1.0) 06/28/19 15:11 Ur Leukocyte Esterase Negative (NEGATIVE) 06/28/19 15:11 RPR Titer Nonreactive (NONREACTIVE) 06/26/19 07:40 lab noted - Treatment Hospital Course: Detox Protocol Followed, Detoxed Safely, Responded well, Discharged Condition Good, Rehab Referral Accepted Patient [facility] Accept[facility] Ref[facility] - Medication Discharge Medications: Ambulatory Orders Eszopiclone [Lunesta] 3 mg PO HS 02/21/19 Methylphenidate HCl [Ritalin LA] 20 mg PO TID 02/21/19 Naloxone HCl [Narcan] 4 mg NS ASDIR PRN #1 spray 06/27/19 - Diagnosis (1) Opioid dependence with withdrawal Status: Acute (2) Sedative, hypnotic or anxiolytic dependence with withdrawal, uncomplicated Status: Acute (3) Substance induced mood disorder Status: Suspected (4) Nicotine dependence Status: Acute Qualifiers: Nicotine product type: cigarettes Substance use status: in withdrawal Qualified Code(s): F17.213 - Nicotine dependence, cigarettes, with withdrawal - AMA Did Patient Leave Against Medical Advice: No CIWA Score - CIWA Score Nausea/Vomitin-No Nausea/No Vomiting Muscle Tremors: 2 Anxiety: 1-Mildly Anxious Agitation: 0-Normal Activity Paroxysmal Sweats: 1-Minimal Palms Moist Orientation: 0-Oriented Tacttile Disturbances: 0-None Auditory Disturbances: 0-None Visual Disturbances: 0-None Headache: 0-None Present CIWA-Ar Total Score: 4 COWS (PN) - Opiate Withdrawal Resting Pulse: 0= [place] 80 or Below Sweatin= Chills/Flushing Restless Observation: 0= Sits Still Pupil Size: 0= Normal to Room Light Bone or Joint Aches: 0= None Runny Nose/ Eye Tearin= None GI Upset > 30mins: 0= None Tremor Observation of Outstretched Hands: 1= Tremor [place], Not Seen Yawning Observation: 0= None Anxiety or Irritability: 1=Feels Anxious/Irritable Goose Flesh Skin: 0=Smooth Skin COWS Score: 3
[2019-07-01] MEDS ORDERED: METHADONE HCL 5 MG TABLET (FOR DETOX USE ONLY) PO ONE (06:00)
== END 2019-06-30 12:28 | disposition other institution (70) | DRG 773 ==
LOC: YASAS 22:13 → Y3N 06-26 01:53
PROVIDERS: ADMIT Allergy & Immunology; ATTEND Allergy & Immunology
PROC: HZ2ZZZZ Detoxification Services for Substance Abuse Treatment (ICD-10-PCS; principal; 2019-06-26)
DX: F11.23 Opioid dependence with withdrawal (principal); F13.230 Sedative, hypnotic or anxiolytic dependence with withdrawal, uncomplicated; F14.20 Cocaine dependence, uncomplicated; F12.20 Cannabis dependence, uncomplicated; F17.210 Nicotine dependence, cigarettes, uncomplicated; F19.282 Other psychoactive substance dependence with psychoactive substance-induced sleep disorder; F19.24 Other psychoactive substance dependence with psychoactive substance-induced mood disorder; F90.9 Attention-deficit hyperactivity disorder, unspecified type; F43.10 Post-traumatic stress disorder, unspecified; B18.2 Chronic viral hepatitis C; Z86.69 Personal history of other diseases of the nervous system and sense organs; Z91.013 Allergy to seafood; Z59.0 Homelessness
CPT/HCPCS: 36415; 80053; 81003; 85027; 86593; 90670; 93005; 93010

== ENCOUNTER 2019-06-30 12:36 | Inpatient (IN) | payer OTHER ==
[2019-06-30] MEDS ORDERED: P-EPHED 60MG/TRIPROLIDI 2.5MG TABLET PO PRN ×2 (13:44→13:52)
[2019-06-30] MEDS ORDERED: LOPERAMIDE HCL 2 MG CAPSULE PO PRN ×2 (13:44→13:52)
[2019-06-30] MEDS ORDERED: guaiFENesin 200 MG/10 ML 10 ML UNIT-DOSE CUPS PO PRN ×2 (13:44→13:52)
[2019-06-30] MEDS ORDERED: MAGNESIUM CITRATE 300 ML BOTTLE PO PRN ×2 (13:44→13:52)
[2019-06-30] MEDS ORDERED: ACETAMINOPHEN 325 MG TABLET (FP) PO PRN (13:44)
[2019-06-30] MEDS ORDERED: MAG HYDROX/AL HYDROX/SIMETH 30 ML UNIT-DOSE CUP PO PRN ×2 (13:44→13:52)
[2019-06-30] MEDS ORDERED: IBUPROFEN 400 MG TABLET (FP) PO PRN ×2 (13:44→13:52)
[2019-06-30] MEDS ORDERED: MAGNESIUM HYDROX 2400MG/30ML ORAL SUSPENSION 30 ML CUP PO PRN ×2 (13:44→13:52)
--- NOTE | 2019-06-30 13:44 | HP ---
[facility] Rehab Assess/Revision - Admission History Admitted to Rehab from: [facility] Date of Admission to Rehab: 06/30/19 - Findings Detox History & Physical reviewed: Yes Concur with findings: Yes Comments/Additional Findings: transferred from detox to rehab admission as per protocol Inpatient Rehab Admission - Rehab Decision to Admit Inpatient rehab admission?: Yes - Initial Determination Are CD services needed?: Yes Free of communicable disease: Yes Not in need of hospitalization: Yes - Rehab Admission Criteria Previous failed treatment: Yes Poor recovery environment: Yes Comorbidities: Yes Lacks judgement: Yes Patient is meeting Inpatient Rehab admission criteria:: Yes
[2019-06-30] MEDS ORDERED: MENTHOL/PHENOL 1 EACH UD MM PRN (13:52)
[2019-06-30] MEDS ORDERED: SUVOREXANT 10 MG TABLET PO PRN (14:01)
[2019-06-30] MEDS: THIAMINE HCL 100 MG TABLET (FP) PO SCH (21:13)
[2019-06-30] MEDS: MELATONIN 5 MG TABLETS PO PRN (21:13)
[2019-06-30] MEDS: QUEtiapine FUMARATE 100 MG TABLET (FP) PO SCH (21:14)
[2019-06-30] MEDS ORDERED: THIAMINE HCL 100 MG TABLET (FP) PO SCH (22:00)
[2019-06-30] MEDS ORDERED: MELATONIN 5 MG TABLETS PO PRN (22:00)
[2019-07-01] MEDS ORDERED: PRENATAL VITAMINS W/ FOLIC ACID TABLET (FP) PO SCH (10:00)
[2019-07-01] MEDS: PRENATAL VITAMINS W/ FOLIC ACID TABLET (FP) PO SCH (10:30)
[2019-07-01] MEDS: NICOTINE POLACRILEX 4 MG GUM BUC PRN ×2 (10:31→22:30)
[2019-07-01] MEDS: THIAMINE HCL 100 MG TABLET (FP) PO SCH (21:41)
[2019-07-01] MEDS: QUEtiapine FUMARATE 100 MG TABLET (FP) PO SCH (21:41)
[2019-07-01] MEDS: MELATONIN 5 MG TABLETS PO PRN (21:41)
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
[2019-07-02] MEDS: NICOTINE POLACRILEX 4 MG GUM BUC PRN (10:08)
[2019-07-02] MEDS: PRENATAL VITAMINS W/ FOLIC ACID TABLET (FP) PO SCH (10:08)
[2019-07-02] MEDS: ATOMOXETINE HCL 25 MG CAPSULE PO SCH (11:00)
--- NOTE | 2019-07-02 15:40 | PN ---
[facility] Progress Note (SOAP) Subjective: Patient requesting to start on vivitrol. He states that he started it before but did not continue. This was several months ago. In addition, he states that he does not want to take oral naltraxone and only wants the injection. He has a history of HEP C and stated that his primary care provider and his liver specialist were in agreement that he could use vivitrol with his HEP C. Objective: General: no apparent distress HEENTM: normocephalic Neck: supple Lungs: clear Heart: s1 s2 Abd: +BS, soft, non-tender, non-distended, 07/02/19 15:47 07/02/19 15:56 Vital Signs Period Temp Pulse Resp BP Sys/Gómez Pulse Ox Last 24 Hr 18-18 Vital Signs (72 hours) 07/01/19 07/01/19 07/02/19 00:30 03:30 00:30 Respiratory 20 20 18 Rate 07/02/19 07:13 Respiratory 18 Rate Assessment: Requesting MAT with vivitrol 07/02/19 15:48 Plan: Patient was advised that we would need documentation from his liver specialist that he could use Vivitrol with Hep C. Patient was advised that our protocol does not allow us to start with the injection and that we must start with oral naltraxone for 3-5 days before the injection. Explained the rationale for the protocol and assured patient that we could address any temporary side effects of the medication. In addition, the patient was informed that we need to ensure that he has a referral to a provider who will continue his Vivitrol treatment. He was instructed to talk to his counselor to arrange for an aftercare referral and to secure documentation from the liver specialist that the Vivitrol is not contraindicated with HEP C. There is some evidence in the literature that in mild to moderate cases of HEP C and HIV, vivtrol can be used. See Hepatic safety of injectable extended-release naltrexone in patients with chronic hepatitis C and HIV infection LINK: https://www.ncbi.nlm.nih.gov/pubmed/6995064
[2019-07-02] MEDS ORDERED: SUVOREXANT 10 MG TABLET PO PRN (22:00)
[2019-07-02] MEDS: THIAMINE HCL 100 MG TABLET (FP) PO SCH (22:13)
[2019-07-02] MEDS: QUEtiapine FUMARATE 100 MG TABLET (FP) PO SCH (22:13)
[2019-07-02] MEDS: SUVOREXANT 10 MG TABLET PO PRN (22:14)
[2019-07-03] MEDS: ATOMOXETINE HCL 25 MG CAPSULE PO SCH (09:07)
[2019-07-03] MEDS: PRENATAL VITAMINS W/ FOLIC ACID TABLET (FP) PO SCH (09:07)
[2019-07-03] MEDS: NICOTINE POLACRILEX 4 MG GUM BUC PRN ×2 (09:08→15:13)
[2019-07-03] MEDS: QUEtiapine FUMARATE 100 MG TABLET (FP) PO SCH (21:26)
[2019-07-03] MEDS: MELATONIN 5 MG TABLETS PO PRN (21:26)
[2019-07-03] MEDS: THIAMINE HCL 100 MG TABLET (FP) PO SCH (21:26)
[2019-07-04] MEDS: PRENATAL VITAMINS W/ FOLIC ACID TABLET (FP) PO SCH (09:26)
[2019-07-04] MEDS: ATOMOXETINE HCL 25 MG CAPSULE PO SCH (09:26)
[2019-07-04] MEDS: NICOTINE POLACRILEX 4 MG GUM BUC PRN (09:26)
[2019-07-04] MEDS: THIAMINE HCL 100 MG TABLET (FP) PO SCH (21:24)
[2019-07-04] MEDS: MELATONIN 5 MG TABLETS PO PRN (21:24)
[2019-07-04] MEDS: QUEtiapine FUMARATE 100 MG TABLET (FP) PO SCH (21:24)
[2019-07-04] MEDS: SUVOREXANT 10 MG TABLET PO PRN (21:25)
[2019-07-05] MEDS: ATOMOXETINE HCL 25 MG CAPSULE PO SCH (10:17)
[2019-07-05] MEDS: PRENATAL VITAMINS W/ FOLIC ACID TABLET (FP) PO SCH (10:17)
[2019-07-05] MEDS: MENTHOL/PHENOL 1 EACH UD MM PRN (10:19)
[2019-07-05] MEDS: guaiFENesin 600 MG TABLET.ER (FP) PO SCH ×2 (11:23→21:19)
[2019-07-05] MEDS: NICOTINE POLACRILEX 4 MG GUM BUC PRN (18:02)
[2019-07-05] MEDS: THIAMINE HCL 100 MG TABLET (FP) PO SCH (21:19)
[2019-07-05] MEDS: MELATONIN 5 MG TABLETS PO PRN (21:19)
[2019-07-05] MEDS: QUEtiapine FUMARATE 100 MG TABLET (FP) PO SCH (21:19)
[2019-07-05] MEDS: SUVOREXANT 10 MG TABLET PO PRN (21:20)
[2019-07-06] MEDS ORDERED: PT OWN MED DRAWER 7, Y5N ONE ×2 (08:51→20:29)
[2019-07-06] MEDS: guaiFENesin 600 MG TABLET.ER (FP) PO SCH ×2 (10:09→21:08)
[2019-07-06] MEDS: PRENATAL VITAMINS W/ FOLIC ACID TABLET (FP) PO SCH (10:09)
[2019-07-06] MEDS: ATOMOXETINE HCL 25 MG CAPSULE PO SCH (10:10)
--- NOTE | 2019-07-06 10:50 | PN ---
S Progress Note Note: Pt would like to get the process started to get Vivitrol prior to discharge next week. d/w pharmacy [facility]. Pt needs to have 3 days of Revia 50mg before the vivitrol injection. Pt needs to have had the last dose of opioid 7-10 days prior to starting Revia. Pt has rec'd last dose of methadone on 06/30. Pt anticipated date of discharge is 07/16- will confirm with counselors. Will start Revia at least 3 days prior. d/w pt
[2019-07-06] MEDS: NICOTINE POLACRILEX 4 MG GUM BUC PRN (15:58)
[2019-07-06] MEDS: THIAMINE HCL 100 MG TABLET (FP) PO SCH (21:07)
[2019-07-06] MEDS: MELATONIN 5 MG TABLETS PO PRN (21:07)
[2019-07-06] MEDS: SUVOREXANT 10 MG TABLET PO PRN (21:08)
[2019-07-06] MEDS: QUEtiapine FUMARATE 100 MG TABLET (FP) PO SCH (21:08)
[2019-07-07] MEDS ORDERED: PT OWN MED DRAWER 7, Y5N ONE ×2 (08:54→18:52)
[2019-07-07] MEDS: ATOMOXETINE HCL 25 MG CAPSULE PO SCH (09:45)
[2019-07-07] MEDS: PRENATAL VITAMINS W/ FOLIC ACID TABLET (FP) PO SCH (09:45)
[2019-07-07] MEDS: MENTHOL/PHENOL 1 EACH UD MM PRN (09:47)
[2019-07-07] MEDS: NICOTINE POLACRILEX 4 MG GUM BUC PRN (09:48)
[2019-07-07] MEDS: guaiFENesin 600 MG TABLET.ER (FP) PO SCH ×2 (10:07→21:29)
[2019-07-07 17:57] LABS: ALBUMIN 3.9 g/dl (3.4-5.0); BILIRUBIN,DIRECT 0.1 mg/dL (0.0-0.2); BILIRUBIN,TOTAL 0.4 mg/dL (0.2-1); TOT PROT 7.6 g/dl (6.4-8.2)
[2019-07-07] MEDS: QUEtiapine FUMARATE 100 MG TABLET (FP) PO SCH (21:28)
[2019-07-07] MEDS: MELATONIN 5 MG TABLETS PO PRN (21:29)
[2019-07-07] MEDS: THIAMINE HCL 100 MG TABLET (FP) PO SCH (21:29)
[2019-07-07] MEDS: SUVOREXANT 10 MG TABLET PO PRN (21:29)
[2019-07-08] MEDS: PRENATAL VITAMINS W/ FOLIC ACID TABLET (FP) PO SCH (09:37)
[2019-07-08] MEDS: ATOMOXETINE HCL 25 MG CAPSULE PO SCH (09:38)
[2019-07-08] MEDS: NICOTINE POLACRILEX 4 MG GUM BUC PRN ×2 (09:39→21:02)
[2019-07-08] MEDS: guaiFENesin 600 MG TABLET.ER (FP) PO SCH ×2 (10:40→21:02)
--- NOTE | 2019-07-08 10:40 | PN ---
[facility] Progress Note Note: Pt here to eval urine tox results and start naltrexone. URINE DRUG SCREEN RESULTS Drug Screen Negative No Urine Drug Screen Results BZO-Benzodiazepines Heroin use disorder: start naltrexone po for 4 days and ordered vivitrol for day before discharge
[2019-07-08] MEDS: MENTHOL/PHENOL 1 EACH UD MM PRN (10:42)
[2019-07-08] MEDS: SUVOREXANT 10 MG TABLET PO PRN (21:02)
[2019-07-08] MEDS: MELATONIN 5 MG TABLETS PO PRN (21:02)
[2019-07-08] MEDS: QUEtiapine FUMARATE 100 MG TABLET (FP) PO SCH (21:02)
[2019-07-08] MEDS: THIAMINE HCL 100 MG TABLET (FP) PO SCH (21:02)
[2019-07-09] MEDS ORDERED: PT OWN MED DRAWER 7, Y5N ONE ×2 (08:48→19:55)
[2019-07-09] MEDS: PRENATAL VITAMINS W/ FOLIC ACID TABLET (FP) PO SCH (09:36)
[2019-07-09] MEDS: guaiFENesin 600 MG TABLET.ER (FP) PO SCH ×2 (09:36→22:01)
[2019-07-09] MEDS: ATOMOXETINE HCL 25 MG CAPSULE PO SCH (09:37)
[2019-07-09] MEDS ORDERED: NALTREXONE HCL 50 MG TABLET PO SCH ×2 (10:00)
[2019-07-09] MEDS: NICOTINE POLACRILEX 4 MG GUM BUC PRN ×2 (11:07→18:54)
[2019-07-09] MEDS ORDERED: SUVOREXANT 10 MG TABLET PO STA (21:55)
[2019-07-09] MEDS: QUEtiapine FUMARATE 100 MG TABLET (FP) PO SCH (22:01)
[2019-07-09] MEDS: THIAMINE HCL 100 MG TABLET (FP) PO SCH (22:01)
[2019-07-10] MEDS ORDERED: PT OWN MED DRAWER 7, Y5N ONE ×2 (09:20→19:35)
[2019-07-10] MEDS: guaiFENesin 600 MG TABLET.ER (FP) PO SCH ×2 (09:48→21:07)
[2019-07-10] MEDS: NALTREXONE HCL 50 MG TABLET PO SCH (09:48)
[2019-07-10] MEDS: PRENATAL VITAMINS W/ FOLIC ACID TABLET (FP) PO SCH (09:48)
[2019-07-10] MEDS: NICOTINE POLACRILEX 4 MG GUM BUC PRN ×2 (09:49→17:51)
[2019-07-10] MEDS: ATOMOXETINE HCL 25 MG CAPSULE PO SCH (09:49)
--- NOTE | 2019-07-10 17:56 | PN ---
[facility] Progress Note Note: Psychiatry Attending's note : Asked to renew order for belsomra. Chart reviewed. Medications verified. Note by Dr Cochran of 07/02/19 : read. No report of adverse effects. Belsomra 10 mg po hs prn. Ordered. With patient's informed consent (verbal).
[2019-07-10] MEDS: THIAMINE HCL 100 MG TABLET (FP) PO SCH (21:07)
[2019-07-10] MEDS: QUEtiapine FUMARATE 100 MG TABLET (FP) PO SCH (21:07)
[2019-07-10] MEDS: SUVOREXANT 10 MG TABLET PO PRN (21:09)
[2019-07-11] MEDS: PRENATAL VITAMINS W/ FOLIC ACID TABLET (FP) PO SCH (09:42)
[2019-07-11] MEDS: guaiFENesin 600 MG TABLET.ER (FP) PO SCH ×2 (09:43→22:01)
[2019-07-11] MEDS: NICOTINE POLACRILEX 4 MG GUM BUC PRN (09:43)
[2019-07-11] MEDS: NALTREXONE HCL 50 MG TABLET PO SCH (09:43)
[2019-07-11] MEDS: ATOMOXETINE HCL 25 MG CAPSULE PO SCH (09:43)
[2019-07-11] MEDS: THIAMINE HCL 100 MG TABLET (FP) PO SCH (21:59)
[2019-07-11] MEDS: QUEtiapine FUMARATE 100 MG TABLET (FP) PO SCH (22:00)
[2019-07-11] MEDS: SUVOREXANT 10 MG TABLET PO PRN (22:01)
[2019-07-12 07:05] VITALS: BP 140/82; PULSE 67; TEMP 97.7
[2019-07-12] MEDS ORDERED: PT OWN MED DRAWER 7, Y5N ONE (08:57)
[2019-07-12] MEDS: NICOTINE POLACRILEX 4 MG GUM BUC PRN (09:35)
--- NOTE | 2019-07-12 10:09 | PN ---
[facility] COWS - Scale Resting Pulse: 0= [place] 80 or Below Sweatin= No chills or Flushing Restless Observation: 1= Difficult to Sit Still Pupil Size: 0= Normal to Room Light Bone or Joint Aches: 0= None Runny Nose/ Eye Tearin= None GI Upset > 30mins: 0= None Tremor Observation of Outstretched Hands: 0= None Yawning Observation: 0= None Anxiety or Irritability: 1=Feels Anxious/Irritable Goose Flesh Skin: 0=Smooth Skin COWS Score: 2 [facility] Progress Note (SOAP) Subjective: PATIENT SCHEDULED FOR DISCHARGED TOMORROW, HOWEVER, INFORMED COUNSELOR WENDY PIEDRA HE WANTED TO BE D/C TODAY. PATIENT HAS AFTERCARE ARRANGED WITH S AND WILL HAVE INTAKE AND PSYCH VISIT TODAY AFTER DISCHARGE. PATIENT STARTED ON NALTREXONE CHALLENGE PRIOR TO VIVITROL ADMINISTRATION BY DR. CRUZ ON AND DENIES ANY SIDE EFFECTS OF HEADACHE, ABDOMINAL PAIN AND DEPRESSION. PATIENT STATE HE WAS TREATED WITH VIVITROL IN PAST AND TOLERATED TREATMENT. HAS PMH OF HEP C AND LETTER OBTAINED FROM DR. FELIPA LYONS AT [facility] INFECTIOUS DISEASE AND INTERNAL MEDICINE CLEARING HIM TO RECEIVE VIVITROL MAT. PATIENT DENIES SI/HI. Objective: 07/12/19 10:09 PE: ALERT AND ORIENTED X 3 SKIN WARM AND DRY CAR S1S2, RRR RESP CTA BL GI NT, ND EXT FULL ROM, NO TREMORS DENIES SI/HI Assessment: 07/12/19 10:10 OPIOD DEPENDENCE Plan: Laboratory Tests 07/07/19 08:50 Total Bilirubin 0.4 Direct Bilirubin 0.1 AST 29 ALT 79 H Alkaline Phosphatase 92 Total Protein 7.6 Albumin 3.9 Vital Signs Period Temp Pulse Resp BP Sys/Gómez Pulse Ox Last 24 Hr 97.7 F 67 18-18 140/82 Ambulatory Orders Eszopiclone [Lunesta] 3 mg PO HS 02/21/19 Methylphenidate HCl [Ritalin LA] 20 mg PO TID 02/21/19 Naloxone HCl [Narcan] 4 mg NS ASDIR PRN #1 spray 06/27/19 VIVITROL 380MG IM X ONE DOSE PRIOR TO D/C FOLLOW UP WITH [facility] TODAY
--- NOTE | 2019-07-12 10:15 | DS ---
[facility] Rehab Discharge Summary - [facility] Rehab Discharge Summary Admission Date: 06/30/19 Discharge Date: 07/12/19 - History Present History: Opioid dependence - Discharge Physical Exam Vital Signs: Vital Signs Temperature 97.7 F 07/12/19 06:00 Pulse Rate 67 07/12/19 06:00 Respiratory Rate 18 07/12/19 06:00 Blood Pressure 140/82 07/12/19 06:00 O2 Sat by Pulse Oximetry (%) - Treatment Discharge Condition: Discharge condition good Hospital Course: ATTENDED GROUP MEETINGS, 1:1 SESSIONS WITH COUNSELOR AND EVALUATED AND TREATED BY PSYCH. PATIENT IS MEDICALLY STABLE AND DENIES SI/HI. MOTIVATED TO MAINTAIN SOBRIETY, ABLE TO IDENTIFY TRIGGERS AND POSITIVE COPING MECHANISMS. - Medication Discharge Medications: Ambulatory Orders Eszopiclone [Lunesta] 3 mg PO HS 02/21/19 Methylphenidate HCl [Ritalin LA] 20 mg PO TID 02/21/19 Naloxone HCl [Narcan] 4 mg NS ASDIR PRN #1 spray 06/27/19 - Medication-Assisted Treatment (MAT) Medication-Assisted Treatment (MAT): Yes Medication Prescribed: Vivitrol (inj) MAT Follow-up Referral: S - Discharge Instructions Diet, activity, other medical instructions: Diet: Activity: Other medical instructions: - Follow-up Referral Minutes to complete discharge: 30 - AMA Did Patient Leave Against Medical Advice: No
[2019-07-12] MEDS ORDERED: NALTREXONE MICROSPHERES (VIVITROL) 380 MG DISP.SYRIN IM ONE (11:00)
[2019-07-12] MEDS: guaiFENesin 600 MG TABLET.ER (FP) PO SCH (11:21)
[2019-07-12] MEDS: ATOMOXETINE HCL 25 MG CAPSULE PO SCH (11:21)
[2019-07-12] MEDS: NALTREXONE HCL 50 MG TABLET PO SCH (11:21)
[2019-07-12] MEDS: PRENATAL VITAMINS W/ FOLIC ACID TABLET (FP) PO SCH (11:21)
[2019-07-12] MEDS ORDERED: FLU VACCINE QUAD 60 MCG/0.5 ML (MDV 19-20) IM ONE (12:00)
[2019-07-13] MEDS ORDERED: NALTREXONE MICROSPHERES (VIVITROL) 380 MG DISP.SYRIN IM ONE (10:39)
== END 2019-07-12 11:35 | disposition home or self-care (01) | DRG 772 ==
LOC: YASAS 12:36 → Y3W 12:37
PROVIDERS: ADMIT Neuromusculoskeletal Medicine & OMM; ATTEND Neuromusculoskeletal Medicine & OMM
PROC: HZ42ZZZ Group Counseling for Substance Abuse Treatment, Cognitive-Behavioral (ICD-10-PCS; principal; 2019-06-30)
DX: F11.20 Opioid dependence, uncomplicated (principal); F13.20 Sedative, hypnotic or anxiolytic dependence, uncomplicated; F14.20 Cocaine dependence, uncomplicated; F12.20 Cannabis dependence, uncomplicated; F17.210 Nicotine dependence, cigarettes, uncomplicated; F19.282 Other psychoactive substance dependence with psychoactive substance-induced sleep disorder; F43.10 Post-traumatic stress disorder, unspecified; F90.9 Attention-deficit hyperactivity disorder, unspecified type; B18.2 Chronic viral hepatitis C; Z86.69 Personal history of other diseases of the nervous system and sense organs; Z91.013 Allergy to seafood
CPT/HCPCS: 36415; 80076; G0008; J2315; Q2036

== ENCOUNTER 2020-09-10 08:29 | Inpatient (IN) | payer SELFPAY ==
[2020-09-10] MEDS ORDERED: MAGNESIUM HYDROX 2400MG/30ML ORAL SUSPENSION 30 ML CUP PO PRN (11:54)
[2020-09-10] MEDS ORDERED: ACETAMINOPHEN 325 MG TABLET (FP) PO PRN ×2 (11:54)
[2020-09-10] MEDS ORDERED: MAGNESIUM CITRATE 300 ML BOTTLE PO PRN (11:54)
[2020-09-10] MEDS ORDERED: MENTHOL/PHENOL 1 EACH UD MM PRN (11:54)
[2020-09-10] MEDS ORDERED: METHADONE HCL 10 MG TABLET (FOR DETOX USE ONLY) PO ONE (11:54)
[2020-09-10] MEDS ORDERED: MAG HYDROX/AL HYDROX/SIMETH 30 ML UNIT-DOSE CUP PO PRN (11:54)
[2020-09-10] MEDS ORDERED: IBUPROFEN 400 MG TABLET (FP) PO PRN (11:54)
[2020-09-10] MEDS ORDERED: NALOXONE HCL 0.4 MG/ML VIAL IM PRN (11:54)
[2020-09-10] MEDS ORDERED: BISMUTH SUBSALICYLATE 524 MG/30 ML UD PO PRN (11:54)
[2020-09-10 12:39] VITALS: BMI 29.8
[2020-09-10] MEDS: METHOCARBAMOL 500 MG TABLET PO PRN (14:58)
[2020-09-10] MEDS: NICOTINE POLACRILEX 2 MG GUM BUC PRN (15:04)
[2020-09-10] MEDS ORDERED: MELATONIN 5 MG TABLETS PO SCH (22:00)
[2020-09-10] MEDS: THIAMINE HCL 100 MG TABLET (FP) PO SCH (22:32)
[2020-09-11] MEDS ORDERED: METHADONE HCL 10 MG TABLET (FOR DETOX USE ONLY) ONE (09:54)
[2020-09-11] MEDS ORDERED: METHADONE HCL 5 MG TABLET (FOR DETOX USE ONLY) ONE (09:54)
[2020-09-11] MEDS ORDERED: METHADONE (DETOX) 20 MG, METHADONE (DETOX) 5 MG PO ONE (10:00)
[2020-09-11] MEDS: METHOCARBAMOL 500 MG TABLET PO PRN (10:13)
[2020-09-11] MEDS: cloNIDine HCL 0.1 MG TABLET PO PRN ×2 (10:14→17:33)
[2020-09-11] MEDS: PRENATAL VITAMINS W/ FOLIC ACID TABLET (FP) PO SCH (10:14)
[2020-09-11] MEDS: NICOTINE POLACRILEX 2 MG GUM BUC PRN ×2 (13:35→17:33)
[2020-09-11 16:19] LABS: BASO % 0.8 % (0-2.0); EOS % 2.7 % (0-4.5); HEMATOCRIT 39.9 % (35.4-49); HEMOGLOBIN 13.3 GM/dL (11.7-16.9); LYMPH % 21.7 % (8-40); MCH 28.7 pg (25.7-33.7); MCHC 33.4 g/dl (32.0-35.9); MEAN CELL VOLUME 85.8 fl (80-96); MEAN PLT VOLUME 8.7 fl (7.5-11.1); NEUT % 68.8 % (42.8-82.8); PLATELET COUNT 294 K/MM3 (134-434); RBC 4.65 M/mm3 (4.00-5.60); RDW 14.7 % (11.9-15.9); WHITE BLOOD COUNT 7.1 K/mm3 (4.0-10.0)
[2020-09-11 16:34] LABS: POTASSIUM 4.2 mmol/L (3.5-5.1)
[2020-09-11 16:36] LABS: CALCIUM 8.6 mg/dL (8.5-10.1)
[2020-09-11 16:37] LABS: ALBUMIN 3.5 g/dl (3.4-5.0); BLOOD UREA NITROGEN 12.5 mg/dL (7-18)
[2020-09-11 16:40] LABS: CREATININE 0.8 mg/dL (0.55-1.3)
[2020-09-11 16:42] LABS: TOT PROT 6.9 g/dl (6.4-8.2)
[2020-09-11 17:32] LABS: HIV INTERPRETATION NEGATIVE (NEGATIVE)
[2020-09-11] MEDS ORDERED: SUVOREXANT 10 MG TABLET PO PRN (22:00)
[2020-09-11] MEDS: THIAMINE HCL 100 MG TABLET (FP) PO SCH (22:17)
[2020-09-12 09:24] VITALS: BP 107/61; PULSE 68; TEMP 96.8
[2020-09-12] MEDS ORDERED: METHADONE HCL 10 MG TABLET (FOR DETOX USE ONLY) PO ONE (10:00)
[2020-09-12] MEDS: cloNIDine HCL 0.1 MG TABLET PO PRN (10:16)
[2020-09-12] MEDS: PRENATAL VITAMINS W/ FOLIC ACID TABLET (FP) PO SCH (10:16)
[2020-09-13] MEDS ORDERED: METHADONE (DETOX) 10 MG, METHADONE (DETOX) 5 MG PO ONE (10:00)
[2020-09-14] MEDS ORDERED: METHADONE HCL 10 MG TABLET (FOR DETOX USE ONLY) PO ONE (10:00)
[2020-09-15] MEDS ORDERED: METHADONE HCL 5 MG TABLET (FOR DETOX USE ONLY) PO ONE (06:00)
== END 2020-09-12 12:28 | disposition left against medical advice (07) | DRG 770 ==
LOC: YASAS 08:29 → Y3N 12:29
PROVIDERS: ADMIT Allergy & Immunology; ATTEND Allergy & Immunology
PROC: HZ2ZZZZ Detoxification Services for Substance Abuse Treatment (ICD-10-PCS; principal; 2020-09-10)
DX: F11.23 Opioid dependence with withdrawal (principal); F12.20 Cannabis dependence, uncomplicated; F17.210 Nicotine dependence, cigarettes, uncomplicated; F19.282 Other psychoactive substance dependence with psychoactive substance-induced sleep disorder; F19.24 Other psychoactive substance dependence with psychoactive substance-induced mood disorder; F43.10 Post-traumatic stress disorder, unspecified; F41.9 Anxiety disorder, unspecified; B18.2 Chronic viral hepatitis C; Z86.69 Personal history of other diseases of the nervous system and sense organs; Z91.013 Allergy to seafood; Z56.0 Unemployment, unspecified; Z59.0 Homelessness
CPT/HCPCS: 36415; 80053; 85025; 86780; 87389; 93005; 93010; C9803; J0735; U0003

== ENCOUNTER 2021-05-07 14:25 | Inpatient (IN) | payer OTHER ==
[2021-05-07 17:58] VITALS: BMI 27.5
[2021-05-07] MEDS ORDERED: MENTHOL/PHENOL 1 EACH UD MM PRN (18:14)
[2021-05-07] MEDS ORDERED: ONDANSETRON *ODT* 4 MG TABLET SL PRN (18:14)
[2021-05-07] MEDS ORDERED: methaDONE HCL 10 MG TABLET (FOR DETOX USE ONLY) PO ONE (18:14)
[2021-05-07] MEDS ORDERED: ACETAMINOPHEN 325 MG TABLET (FP) PO PRN ×2 (18:14)
[2021-05-07] MEDS ORDERED: MAG HYDROX/AL HYDROX/SIMETH 30 ML UNIT-DOSE CUP PO PRN (18:14)
[2021-05-07] MEDS ORDERED: BISMUTH SUBSALICYLATE 524 MG/30 ML PO PRN (18:14)
[2021-05-07] MEDS ORDERED: MAGNESIUM CITRATE 300 ML BOTTLE PO PRN (18:14)
[2021-05-07] MEDS ORDERED: NICOTINE 14 MG/24 HOURS TOPICAL PATCH TD PRN (18:14)
[2021-05-07] MEDS ORDERED: cloNIDine HCL 0.1 MG TABLET PO PRN (18:14)
[2021-05-07] MEDS ORDERED: diazePAM 5 MG TABLET PO PRN (18:14)
[2021-05-07] MEDS ORDERED: MAGNESIUM HYDROX 2400MG/30ML ORAL SUSPENSION 30 ML CUP PO PRN (18:14)
[2021-05-07] MEDS ORDERED: IBUPROFEN 400 MG TABLET (FP) PO PRN (18:14)
[2021-05-07] MEDS: diazePAM 5 MG TABLET PO SCH ×2 (21:58→21:59)
[2021-05-07] MEDS: METHOCARBAMOL 500 MG TABLET PO PRN (21:59)
[2021-05-07] MEDS: hydrOXYzine PAMOATE 25 MG CAPSULE (FP) PO SCH (21:59)
[2021-05-07] MEDS: MELATONIN 5 MG TABLETS PO SCH (22:01)
[2021-05-07] MEDS: THIAMINE HCL 100 MG TABLET (FP) PO SCH (22:02)
[2021-05-08] MEDS: hydrOXYzine PAMOATE 25 MG CAPSULE (FP) PO SCH ×2 (06:31→10:44)
[2021-05-08] MEDS: diazePAM 5 MG TABLET PO SCH ×4 (06:32→22:25)
[2021-05-08] MEDS ORDERED: methaDONE HCL 10 MG TABLET (FOR DETOX USE ONLY) ONE (09:15)
[2021-05-08] MEDS ORDERED: hydrOXYzine PAMOATE 25 MG CAPSULE (FP) PO PRN (12:16)
[2021-05-08] MEDS: NICOTINE 10 MG CARTRIDGE (INHALER) IH PRN (17:30)
[2021-05-08] MEDS: MELATONIN 5 MG TABLETS PO SCH (22:24)
[2021-05-08] MEDS: THIAMINE HCL 100 MG TABLET (FP) PO SCH (22:24)
[2021-05-08] MEDS: METHOCARBAMOL 500 MG TABLET PO PRN (22:25)
[2021-05-09] MEDS: diazePAM 5 MG TABLET PO SCH ×2 (05:14→14:08)
[2021-05-09] MEDS ORDERED: methaDONE HCL 10 MG TABLET (FOR DETOX USE ONLY) PO ONE (10:00)
[2021-05-09] MEDS: NICOTINE 10 MG CARTRIDGE (INHALER) IH PRN ×2 (10:39→14:09)
[2021-05-09 13:16] VITALS: BP 130/73; PULSE 68; TEMP 96.9
[2021-05-10] MEDS ORDERED: diazePAM 5 MG TABLET PO SCH (06:00)
[2021-05-11] MEDS ORDERED: diazePAM 5 MG TABLET PO ONE (06:00)
[2021-05-11] MEDS ORDERED: methaDONE HCL 10 MG TABLET (FOR DETOX USE ONLY) PO ONE (10:00)
== END 2021-05-09 15:14 | disposition left against medical advice (07) | DRG 770 ==
LOC: YASAS 14:25 → Y3N 20:20
PROVIDERS: ADMIT Allergy & Immunology; ATTEND Allergy & Immunology
PROC: HZ2ZZZZ Detoxification Services for Substance Abuse Treatment (ICD-10-PCS; principal; 2021-05-07)
DX: F11.23 Opioid dependence with withdrawal (principal); F13.230 Sedative, hypnotic or anxiolytic dependence with withdrawal, uncomplicated; F12.20 Cannabis dependence, uncomplicated; F17.210 Nicotine dependence, cigarettes, uncomplicated; F25.9 Schizoaffective disorder, unspecified; F19.24 Other psychoactive substance dependence with psychoactive substance-induced mood disorder; F41.9 Anxiety disorder, unspecified; F43.10 Post-traumatic stress disorder, unspecified; F90.9 Attention-deficit hyperactivity disorder, unspecified type
CPT/HCPCS: C9803; J0735; U0003; U0005

== ENCOUNTER 2022-02-27 22:08 | Inpatient (IN) | payer OTHER ==
[2022-02-27] MEDS ORDERED: MAGNESIUM CITRATE 300 ML BOTTLE PO PRN (22:57)
[2022-02-27] MEDS ORDERED: DICYCLOMINE HCL 10 MG CAPSULE PO PRN (22:57)
[2022-02-27] MEDS ORDERED: BISMUTH SUBSALICYLATE 524 MG/30 ML PO PRN (22:57)
[2022-02-27] MEDS ORDERED: IBUPROFEN 600 MG TABLET (FP) PO PRN (22:57)
[2022-02-27] MEDS ORDERED: LOPERAMIDE HCL 2 MG CAPSULE PO PRN (22:57)
[2022-02-27] MEDS ORDERED: MAG HYDROX/AL HYDROX/SIMETH 30 ML UNIT-DOSE CUP PO PRN (22:57)
[2022-02-27] MEDS ORDERED: IBUPROFEN 400 MG TABLET (FP) PO PRN (22:57)
[2022-02-27] MEDS ORDERED: NALOXONE HCL (KLOXXADO) 8 MG SPRAY NS PRN (22:57)
[2022-02-27] MEDS ORDERED: MAGNESIUM HYDROX 2400MG/30ML ORAL SUSPENSION 30 ML CUP PO PRN (22:57)
[2022-02-27] MEDS ORDERED: BENZOCAINE/MENTHOL (CHLORASEPTIC ) LOZENGE MM PRN (22:57)
[2022-02-27] MEDS ORDERED: guaiFENesin 200 MG/10 ML 10 ML UNIT-DOSE CUPS PO PRN (22:57)
[2022-02-27] MEDS ORDERED: NICOTINE POLACRILEX 2 MG GUM BUC PRN (22:57)
[2022-02-27] MEDS ORDERED: ACETAMINOPHEN 325 MG TABLET (FP) PO PRN ×2 (22:57)
[2022-02-27] MEDS ORDERED: PROCHLORPERAZINE MALEATE 5 MG TABLET PO PRN (22:57)
[2022-02-27] MEDS ORDERED: NALOXONE HCL 0.4 MG/ML VIAL IM PRN (22:57)
[2022-02-27] MEDS ORDERED: P-EPHED 60MG/TRIPROLIDI 2.5MG TABLET PO PRN (22:57)
[2022-02-27 23:22] VITALS: BMI 34.6
[2022-02-28] MEDS ORDERED: methaDONE HCL 10 MG TABLET (FOR DETOX USE ONLY) PO ONE (05:52)
[2022-02-28] MEDS ORDERED: cloNIDine HCL 0.1 MG TABLET PO PRN (05:52)
[2022-02-28] MEDS ORDERED: methaDONE HCL 10 MG TABLET (FOR DETOX USE ONLY) ONE ×2 (06:04→07:37)
[2022-02-28] MEDS ORDERED: diazePAM 5 MG TABLET ONE ×2 (06:04→07:37)
[2022-02-28] MEDS ORDERED: PANTOPRAZOLE 20 MG TABLET PO ONE (06:18)
[2022-02-28] MEDS ORDERED: ONDANSETRON *ODT* 4 MG TABLET SL ONE (06:22)
[2022-02-28] MEDS: diazePAM 5 MG TABLET PO SCH ×4 (07:38→22:11)
[2022-02-28 10:29] LABS: HEMATOCRIT 37.5 % (35.4-49); HEMOGLOBIN 12.5 GM/dL (11.7-16.9); MCH 28.8 pg (25.7-33.7); MCHC 33.4 g/dl (32.0-35.9); MEAN CELL VOLUME 86.2 fl (80-96); MEAN PLT VOLUME 8.2 fl (7.5-11.1); PLATELET COUNT 227 10^3/uL (134-434); RBC 4.35 M/mm3 (4.00-5.60); RDW 13.3 % (11.9-15.9); WHITE BLOOD COUNT 7.1 K/mm3 (4.0-10.0)
[2022-02-28] MEDS: PRENATAL VITAMINS W/ FOLIC ACID TABLET (FP) PO SCH (10:30)
[2022-02-28 10:55] LABS: CALCIUM 8.7 mg/dL (8.5-10.1)
[2022-02-28 10:56] LABS: ALBUMIN 3.5 g/dl (3.4-5.0); BLOOD UREA NITROGEN 11.9 mg/dL (7-18)
[2022-02-28 10:59] LABS: CREATININE 0.8 mg/dL (0.55-1.3)
[2022-02-28 11:01] LABS: TOT PROT 7.1 g/dl (6.4-8.2)
[2022-02-28] MEDS: PANTOPRAZOLE 20 MG TABLET PO SCH (12:46)
[2022-02-28] MEDS: NICOTINE 14 MG/24 HOURS TOPICAL PATCH TD SCH (12:46)
[2022-02-28 14:49] LABS: HIV INTERPRETATION NEGATIVE (NEGATIVE)
[2022-02-28] MEDS: NICOTINE 10 MG CARTRIDGE (INHALER) IH PRN (19:54)
[2022-02-28] MEDS: MELATONIN 5 MG TABLETS PO SCH (22:11)
[2022-02-28] MEDS: THIAMINE HCL 100 MG TABLET (FP) PO SCH (22:11)
[2022-02-28] MEDS: QUEtiapine FUMARATE 100 MG TABLET (FP) PO SCH (22:11)
[2022-03-01] MEDS: diazePAM 5 MG TABLET PO SCH ×3 (05:49→22:24)
[2022-03-01] MEDS: NICOTINE 10 MG CARTRIDGE (INHALER) IH PRN (05:50)
[2022-03-01] MEDS ORDERED: methaDONE HCL 10 MG TABLET (FOR DETOX USE ONLY) ONE (09:56)
[2022-03-01] MEDS: PRENATAL VITAMINS W/ FOLIC ACID TABLET (FP) PO SCH (11:02)
[2022-03-01] MEDS: PANTOPRAZOLE 20 MG TABLET PO SCH (11:02)
[2022-03-01] MEDS: NICOTINE 14 MG/24 HOURS TOPICAL PATCH TD SCH (11:03)
[2022-03-01] MEDS: diazePAM 5 MG TABLET PO PRN (11:04)
[2022-03-01] MEDS: METHOCARBAMOL 500 MG TABLET PO PRN (11:06)
[2022-03-01] MEDS: THIAMINE HCL 100 MG TABLET (FP) PO SCH (22:23)
[2022-03-01] MEDS: QUEtiapine FUMARATE 100 MG TABLET (FP) PO SCH (22:23)
[2022-03-01] MEDS: MELATONIN 5 MG TABLETS PO SCH (22:24)
[2022-03-02] MEDS: diazePAM 5 MG TABLET PO SCH ×2 (05:28→17:34)
[2022-03-02] MEDS ORDERED: methaDONE HCL 10 MG TABLET (FOR DETOX USE ONLY) PO ONE (10:00)
[2022-03-02] MEDS: diazePAM 5 MG TABLET PO PRN ×3 (10:08→22:21)
[2022-03-02] MEDS: PRENATAL VITAMINS W/ FOLIC ACID TABLET (FP) PO SCH (10:08)
[2022-03-02] MEDS: PANTOPRAZOLE 20 MG TABLET PO SCH (10:08)
[2022-03-02] MEDS: NICOTINE 14 MG/24 HOURS TOPICAL PATCH TD SCH (10:09)
[2022-03-02] MEDS: NICOTINE 10 MG CARTRIDGE (INHALER) IH PRN ×2 (12:54→17:16)
[2022-03-02 17:28] VITALS: RESP 18
[2022-03-02] MEDS ORDERED: NICOTINE POLACRILEX 2 MG GUM BUC PRN (19:26)
[2022-03-02] MEDS: QUEtiapine FUMARATE 100 MG TABLET (FP) PO SCH (22:20)
[2022-03-02] MEDS: MELATONIN 5 MG TABLETS PO SCH (22:20)
[2022-03-02] MEDS: THIAMINE HCL 100 MG TABLET (FP) PO SCH (22:20)
[2022-03-03] MEDS ORDERED: diazePAM 5 MG TABLET PO ONE (06:00)
[2022-03-03] MEDS ORDERED: methaDONE HCL 10 MG TABLET (FOR DETOX USE ONLY) ONE (09:32)
[2022-03-03 09:50] VITALS: BP 126/68; PULSE 66; TEMP 97.3
[2022-03-03] MEDS: PRENATAL VITAMINS W/ FOLIC ACID TABLET (FP) PO SCH (10:07)
[2022-03-03] MEDS: PANTOPRAZOLE 20 MG TABLET PO SCH (10:08)
[2022-03-03] MEDS: METHOCARBAMOL 500 MG TABLET PO PRN (10:08)
[2022-03-04] MEDS ORDERED: methaDONE HCL 10 MG TABLET (FOR DETOX USE ONLY) PO ONE (10:00)
== END 2022-03-03 13:15 | disposition left against medical advice (07) | DRG 770 ==
LOC: YASAS 22:08 → Y3N 02-28 12:16
PROVIDERS: ADMIT Allergy & Immunology; ATTEND Surgery
PROC: HZ2ZZZZ Detoxification Services for Substance Abuse Treatment (ICD-10-PCS; principal; 2022-02-28)
DX: F11.23 Opioid dependence with withdrawal (principal); F13.230 Sedative, hypnotic or anxiolytic dependence with withdrawal, uncomplicated; F14.20 Cocaine dependence, uncomplicated; F12.20 Cannabis dependence, uncomplicated; F17.210 Nicotine dependence, cigarettes, uncomplicated; F43.10 Post-traumatic stress disorder, unspecified; F19.24 Other psychoactive substance dependence with psychoactive substance-induced mood disorder; F19.282 Other psychoactive substance dependence with psychoactive substance-induced sleep disorder; F25.9 Schizoaffective disorder, unspecified; B18.2 Chronic viral hepatitis C; G47.00 Insomnia, unspecified; Z91.013 Allergy to seafood; Z91.14 Patient's other noncompliance with medication regimen; Z56.0 Unemployment, unspecified; Z59.00 Homelessness unspecified
CPT/HCPCS: 36415; 80053; 85027; 86780; 87389; 87811; 93005; 93010; C9803-CS; J0735; U0003; U0005